=== PATIENT | male | born 1975 | race African-American/Black ===

== ENCOUNTER 2025-08-09 14:46 | Inpatient (IN) | payer MEDICAID, SELFPAY ==
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
[2025-08-09 14:55] VITALS: BP 189/139; PULSE 85; RESP 18; TEMP 36.2; O2SAT 99
[2025-08-09 15:20] VITALS: BMI 24.1
--- NOTE | 2025-08-09 17:10 | PC.NURSE ---
Pt refused flu vaccine
--- NOTE | 2025-08-09 17:41 | PC.ADMIT ---
Rik was admitted to [facility] from [facility] on a CV for treatment of unspecified depressive disorder and alcohol use disorder. Prior to admission, he reports he had gotten into an argument with his and daughter which happened often. He reports he was kicked out of the home and is newly homeless causing an increase in stress. He was having nonspecific HI towards his family and nonspecific SI. He reports he wants to get help because he hasn't been able to maintain help or providers due to his current insurance. He is alert and oriented x4, calm and cooperative with admission assessment. His thought process was clear and linear, no evidence of perceptual disturbances. His mood is depressed and his affect is variable. He was tearful at times when expressing his struggles. He denies current SI/HI/AVH but reports being able to come to staff if these thoughts occur. He reports poor appetite and difficulty staying asleep at night however has not had any weight loss. He reports daily marijuana use and daily alcohol use. He reports drinking 2.5 pints of beer daily, last drink being 08/08/25 and last marijuana use was 08/08/25. His BAL was 234 and his tox screen was positive for marijuana. He reports a history of sleep apnea without CPAP, HTN and gout. He reports many surgeries to his bilateral wrists, R clavicle and knees. He reports pain to L knee which is chronic. He was placed on 15 minute checks. His skin check was unremarkable.
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
[2025-08-09 18:38] VITALS: BP 159/114
[2025-08-09 18:54] VITALS: BP 158/118
--- OUTSIDE RECORDS SUMMARY | 2025-08-09 19:08 | XMS_ITS | Encounter Summary ---
Author Organization [facility] Address [address] [place] [address] Care Team Providers Care Log Marker Name Role Phone Saleem Martin MD Primary Care Provider [phone] Encounter Details Date Type Department Care Team (Late st Contact Info) Description 03/06/2025 Lab Requisition [facility] [address] [facility] [place] [phone] Tiffanie Garcia, [facility] [address] [place] [address] Other jail (current) drug therapy Social History Tobacco Use Types Packs/Day Years [...] AM EST documented as of this encounter Functional Status * Are you deaf or do you have serious difficulty hearing? Answer Date of Assessment Author No 12/16/2024 12:14 AM EDT Luke Miller RN * Are you blind or do [...] 12/16/2024 12:14 AM Luke Moreira RN documented as of this encounter Mental Status * Because of a physical, mental, or emotional condition, do you have serious difficulty concentrating, remembering, or making decisions? (5 years old or older) Answer Entry Date Author No 12/16/2024 12:14 AM Luke Moreira RN documented in this encounter Plan of Treatment Not on file documented as of this encounter Procedures Procedure Name Priority Date/Time Associated Diagnosis Comments LIPID PANEL WITH REFLEX TO DIRECT LDL Routine 03/06/2025 7:00 AM EDT Other jail (current) drug therapy BASIC METABOLIC PANEL Routine 03/06/2025 7:00 AM EDT Other manager long term care (current) drug therapy documented in this encounter Results * (ABNORMAL) Lipid panel with reflex to direct LDL (03/06/2025 7:00 AM EDT) Cholesterol 219(H) 0 - 200 mg/dL LAB CHEMISTRY METHOD 03/06/2025 12:13 PM EDT [facility] Triglycerides 115 0 - 150 mg/dL LAB CHEMISTRY METHOD 03/06/2025 12:13 PM T [facility] HDL 93 >=40 mg/dL LAB CHEMISTRY METHOD 03/06/2025 12:13 PM T [facility] LDL Calculated 103(H) 0 - 100 mg/dL LAB CHEMISTRY METHOD 03/06/2025 12:13 PM T [facility] VLDL Cholesterol Yefri 23 mg/dL LAB CHEMISTRY METHOD 03/06/2025 12:13 PM T [facility] Non HDL Chol. (LDL+VLDL) 126 <145 mg/dL LAB CHEMISTRY METHOD 03/06/2025 12:13 PM [facility] Chol/HDL Ratio 2.4 0.0 - 4.4 LAB CHEMISTRY METHOD 03/06/2025 12:13 PM [facility] Blood Venous blood specimen / Unknown Venipuncture / Unknown 03/06/2025 7:00 AM EDT 03/06/2025 11:07 AM EDT us Tiffanie Garcia NETWORKING TECHNICIAN LAB BLOOD ORDERABLES Final Result [facility] [address] [place] [address], [place] [phone] * (ABNORMAL) Basic metabolic panel (03/06/2025 7:00 AM EDT) Sodium 137 133 - 145 mmol/L LAB CHEMISTRY METHOD 03/06/2025 12:12 PM [facility] Potassium 3.9 3.5 - 5.5 mmol/L LAB CHEMISTRY METHOD 03/06/2025 12:12 PM [facility] Chloride 101 96 - 110 mmol/L LAB CHEMISTRY METHOD 03/06/2025 12:12 PM [facility] CO2 31 21 - 32 mmol/L LAB CHEMISTRY METHOD 03/06/2025 12:12 PM [facility] Anion Gap 5 3 - 11 LAB CHEMISTRY METHOD 03/06/2025 12:12 PM [facility] Glucose 107(H) 70 - 100 mg/dL LAB CHEMISTRY METHOD 03/06/2025 12:12 PM [facility] BUN 7 5 - 25 mg/dL LAB CHEMISTRY METHOD 03/06/2025 12:12 PM [facility] Creatinine 0.81 0.70 - 1.30 mg/dL LAB CHEMISTRY METHOD 03/06/2025 12:12 PM EDT [facility] eGFR 109 >=60 mL/min/1. 73m2 LAB CHEMISTRY METHOD 03/06/2025 12:12 PM EDT [facility] Comment:Calculation based on the Chronic Kidney Disease Epidemiology Collaboration (CKD-EPI) equation refit without adjustment for race. BUN/Creatinine Ratio 8.6 LAB CHEMISTRY METHOD 03/06/2025 12:12 PM EDT [facility] Calcium 9.4 8.5 - 10.5 mg/dL LAB CHEMISTRY METHOD 03/06/2025 12:12 PM EDT [facility] Blood Venous blood specimen / Unknown Venipuncture / Unknown 03/06/2025 7:00 AM EDT 03/06/2025 11:07 AM EDT Tiffanie Garcia NETWORKING TECHNICIAN LAB BLOOD ORDERABLES Final Result [facility] [address] [place] [address], documented in this encounter Visit Diagnoses Diagnosis Other manager long term care (current) drug therapy documented in this encounter Care Teams Log Marker Relationship Specialty Start Date End Date Saleem Martin MD [address] [place] [address] PCP - General Internal Medicine 07/29/24 documented as of this encounter
--- OUTSIDE RECORDS SUMMARY | 2025-08-09 19:09 | XMS_ITS | Clinical Summary ---
Author Organization [facility] Address [address] [place] [address] Phone Care Team Providers Care Hr Clerk Name Role Phone Saleem Martin MD Primary Care Provider [phone] Allergies Active Allergy Reactions Criticality Noted Date Comments Hydrochlorothiazide 12/06/2024 Lisinopril Swelling High 07/29/2024 Joint swelling/gout exacerbation Medications oxyCODONE (OXY-IR) 5 mg immediate release capsule Take 1 capsule (5 mg total) by mouth every 6 (six) hours if needed for severe pain. Max Daily Amount: 20 mg 28 capsule 4 Active Additional Information Patient not taking.Reported on 12/16/2024 amLODIPine (NORVASC) 5 mg tablet Take 1 tablet (5 mg total) by mouth 1 (one) time each day for 7 days, THEN 2 tablets (10 mg total) 1 (one) time each day for 23 days. 53 each 5 Active hydrocortisone (ANUSOL-HC) 2.5 % rectal cream Insert into the rectum 2 (two) times a day for 10 days. 30 g 5 Active cyanocobalamin (VITAMIN B-12) 500 mcg tablet Take 1 tablet (500 mcg total) by mouth 1 (one) time each day. 5 Active FLUoxetine (PROzac) 10 mg capsule Take 4 capsules (40 mg total) by mouth 1 (one) time each day. 5 Active hydrOXYzine HCL (ATARAX) 50 mg tablet Take 1 tablet (50 mg total) by mouth 3 (three) times a day if needed for anxiety. 5 Active One Daily Multivitamin tablet Take 1 tablet by mouth 1 (one) time each day. 5 Active thiamine 100 mg tablet Take 1 tablet (100 mg total) by mouth 1 (one) time each day. 5 Active traZODone (DESYREL) 100 mg tablet Take 1 tablet (100 mg total) by mouth at bedtime. 5 Active prazosin (MINIPRESS) 2 mg capsule Take 1 capsule (2 mg total) by mouth at bedtime. at bedtime 5 Active amLODIPine (NORVASC) 10 mg tablet Take 1 tablet (10 mg total) by mouth 1 (one) time each day. for 14 days Active allopurinoL (ZYLOPRIM) 100 mg tablet Take 1 tablet (100 mg total) by mouth 1 (one) time each day. 5 Active folic acid (FOLVITE) 1 mg tablet Take 1 tablet (1,000 mcg total) by mouth 1 (one) time each day. Active losartan (COZAAR) 50 mg tablet Take 1 tablet (50 mg total) by mouth 2 (two) times a day. Active melatonin 3 mg tablet Take 1 tablet (3 mg total) by mouth at bedtime as needed. for insomnia 5 Active OLANZapine (ZyPREXA) 5 mg tablet Take 1 tablet (5 mg total) by mouth at bedtime. Active Active Problems Problem Noted Date Diagnosed Date Strangulated hemorrhoids 12/07/2024 HTN (hypertension) 07/30/2024 Closed Bledsoe's fracture of right radius 024 Encounters Date Type Department Care Team Description 08/08/2025 6:06 PM EST - 08/09/2025 2:26 PM EST Emergency [facility] Emergency [address] [place] [address] Junaid Haro MD Goebel, Mathew, MD Mogul, Ashley, MD Depression, unspecified depression type (Primary Dx); Agitation; Alcoholic intoxication without complication (CMS/[facility] V24); Alcohol dependence with unspecified alcohol-induced disorder (CMS/HCC V24, [facility] V28) [facility]charge Disposition: [facility] Last 3 Months Immunizations Immunization Administration Dates Next Due Moderna SARS-CoV-2 COVID-19, mRNA, LNP-S, preservative free 01/18/2022,12/28/2021 Surgical History Surgery Date Site/Laterality Comments OTHER SURGICAL HISTORY ANTERIOR CRUCIATE LIGAMENT REPAIR ACHILLES TENDON SURGERY Medical History Medical History Date Comments Hypertension Insomnia Anxiety Social History Tobacco Use Types Packs/Day Years Used Date Smoking Tobacco: Some Days Cigarettes 0 Last attempted to quit: 2013 Smokeless Tobacco: Never Tobacco Cessation:Ready to Q uit: Not Asked; Counseling Given: Not Answered Alcohol Use Standard Drinks/Week Comments Yes 7 [...] Orientation Straight 07/30/2024 8: 19 AM EST Last Filed Vital Signs Vital Sign Reading [...] Mass Index 26.63 08/08/2025 6:47 PM EST Plan of Treatment Health Maintenance Due Date Last Done Comments Colorectal Cancer Screening: Colonoscopy 1976 Hepatitis A Vaccines (1 of 2 - Risk 2-dose series) 1995 Hepatitis B Vaccines (1 of 3 - 19+ 3-dose series) 1995 Pneumococcal Vaccine: Pediatrics (0 to 5 Years) and At-Risk Patients (6 to 49 Years) (1 of 2 - PCV) 1995 HIV Screening 06/03/2024 Hepatitis C Screening 06/03/2024 Social Influencers of Health Screening 06/03/2024 Depression Screening 08/25/2024 COVID-19 Vaccine ( season) 2025 01/18/2022, 12/28/2021 Influenza Vaccine (#1) 2025 Hypertension/CHF/CAD Annual BMP Blood Test 08/08/2026 08/08/2025, 03/06/2025, 12/16/2024, Additional history exists DTaP,Tdap,and Td Vaccines (2 - Td or Tdap) 06/17/2028 06/17/2018 Cholesterol Screening (Lipid Panel) 03/06/2030 03/06/2025 RSV Immunization Adult Patients (1 - 1-dose 75+ series) 2051 HIB Vaccines Aged Out No longer eligi ble based on patient's age to complete this topic HPV Vaccines Aged Out No longer eligi ble based on patient's age to complete this topic IPV Vaccines Aged Out No longer eligi ble based on patient's age to complete this topic MMR Vaccines Aged Out No longer eligi ble based on patient's age to complete this topic Meningococcal ACWY Vaccine Aged Out N o longer eligible based on patient's age to complete this topic Meningococcal B Vaccine Aged Out No l onger eligible based on patient's age to complete this topic RSV Immunization Patients Under 20 months Aged Out No longer eligible based on patient's age to complete this topic Varicella Vaccines Aged Out No longer eligible based on patient's age to complete this topic Medical Devices Implanted Type Area Fraud Manager Device Identifier Shelf Expiration Date Model / Serial / Lot Plate Hook Screw Geminus - Sn/A - [id number] Implanted:Qty: 1 on 07/30/2024 by Derek Parekh MD at [facility] Internal and External Fixation Right: Wrist [employer] [facility] GMN-HP-SC RW / N/A / N/A Plate Geminus Std 4 Hole R - Sn/A - [id number] Implanted:Qty: 1 on 07/30/2024 by Derek Parekh MD at [facility] Internal and External Fixation Right: Wrist [employer] [facility] GMN-RTS-4 HL / N/A / N/A Plate Hook Geminus - Sn/A - [id number] Implanted:Qty: 1 on 07/30/2024 by Derek Parekh MD at [facility] Internal and External Fixation Right: Wrist [employer] GMN-HP / N/A / N/A Joints Knee Joints Knee Left: Knee Peg Thrd Lcking 2.0ndw38ml - Sn/A - [id number] Implanted:Qty: 2 on 07/30/2024 by Derek Parekh MD at [facility] Joints Right: Wrist [employer] TPLS-2316 0-TS / N/A / N/A Peg Thrd Lcking 2.0erm73sg - Sn/A - [id number] Implanted:Qty: 3 on 07/30/2024 by Derek Parekh MD at [facility] Joints Right: Wrist [employer] TPLS-2320 0-TS / N/A / N/A Screw Tigre Nonlcking 3.5x14mm - Sn /A - [id number] Implanted:Qty: 2 on 07/30/2024 by Derek Parekh MD at [facility] Joints Right: Wrist [employer] PANL-3514 0-TS / N /A / N/A Peg Thrd Lcking 2.7sku51rx - Sn/A - [id number] Implanted:Qty: 1 on 07/30/2024 by Derek Parekh MD at [facility] Joints Right: Wrist [employer] [id number]-2318 0-TS / N/A / N/A Peg Thrd Lcking 2.0fuq55df - Sn/A - [id number] Implanted:Qty: 1 on 07/30/2024 by Derek Parekh MD at [facility] Joints Right: Wrist [employer] TPLS-2322 0-TS / N/A / N/A Screw Tigre Lcking 3.2sen74ct - Sn/A - [id number] Implanted:Qty: 1 on 07/30/2024 by Derek Parekh MD at [facility] Joints Right: Wrist [employer] [id number]-[id number] 0-TS / N/A / N/A Screw Tigre Nonlcking 3.5x13mm - Sn/A - [id number] Implanted:Qty: 1 on 07/30/2024 by Derek Parekh MD at [facility] Joints Right: Wrist [employer] [id number]-[id number] 0-TS / N/A / N/A Procedures Procedure Name Priority Date/Time Associated Diagnosis Comments ECG 12-LEAD STAT 08/08/2025 6:57 PM EST CBC WITH AUTO DIFFERENTIAL STAT 08/08/2025 6:32 PM EST ACETAMINOPHEN LEVEL Timed 08/08/2025 6 :32 PM EST SALICYLATE LEVEL Timed 08/08/2025 6:3 2 PM EST ETHANOL STAT 08/08/2025 6:32 PM EST CBC AND DIFFERENTIAL STAT 08/08/2025 6:32 PM EST COMPREHENSIVE METABOLIC PANEL STAT 08/08/2025 6:32 PM EST BUPRENORPHINE SCREEN, URINE STAT 08/08/2025 6:29 PM EST METHADONE SCREEN, URINE STAT 08/08/2025 6:29 PM EST LIPID PANEL WITH REFLEX TO DIRECT LDL Routine 03/06/2025 7:00 AM EDT Other chcf (current) drug therapy from Last 3 Months or Most Recently Relevant to Health Maintenance Results * ECG 12 lead (08/08/2025 6:57 PM EST) Ventricular Rate ECG 77 BPM GEMUSE Atrial Rate 77 BPM GEMUSE P-R Interval 158 ms GEMUSE QRS Duration 82 ms GEMUSE Q-T Interval 422 ms GEMUSE QTc 477 ms GEMUSE P Wave [place] 77 degrees GEMUSE R [place] 61 degrees GEMUSE T [place] 62 degrees GEMUSE ECG Interpretation Normal sinus [...] K/mcL LAB HEMETOLOGY METHOD 08/08/2025 7:09 PM [facility] RBC 4.50 4.50 - 5.50 M/mcL LAB HEMETOLOGY METHOD 08/08/2025 7:09 PM [facility] Hemoglobin 13.9 13.5 - 17.5 g/dL LAB HEMETOLOGY METHOD 08/08/2025 7:09 PM [facility] Hematocrit 39.1(L) 42.0 - 54.0 % LAB HEMETOLOGY METHOD 08/08/2025 7:09 PM [facility] MCV 87.5 79.0 - 98.0 FL LAB HEMETOLOGY METHOD 08/08/2025 7:09 PM [facility] MCH 31.1 27.0 - 32.0 pcg LAB HEMETOLOGY METHOD 08/08/2025 7:09 PM [facility] MCHC 35.5 32.0 - 37.0 g/dL LAB HEMETOLOGY METHOD 08/08/2025 7:09 PM [facility] RDW 11.9 11.0 - 15.0 % LAB HEMETOLOGY METHOD 08/08/2025 7:09 PM [facility] Platelets 266 130 - 400 K/mcL LAB HEMETOLOGY METHOD 08/08/2025 7:09 PM [facility] MPV 10.4 7.0 - 11.0 FL LAB HEMETOLOGY METHOD 08/08/2025 7:09 PM [facility] NRBC 0.0 <1.0 % LAB HEMETOLOGY METHOD 08/08/2025 7:09 PM [facility] NRBC Absolute 0.00 <0.10 K/mcL LAB HEMETOLOGY METHOD 08/08/2025 7:09 PM [facility] Neutrophils Relative 68.3 % LAB HEMETOLOGY METHOD 08/08/2025 7:09 PM [facility] Lymphocytes Relative 25.3 % LAB HEMETOLOGY METHOD 08/08/2025 7:09 PM [facility] Monocytes Relative 5.6 % LAB HEMETOLOGY METHOD 08/08/2025 7:09 PM [facility] Eosinophils Relative 0.1 % LAB HEMETOLOGY METHOD 08/08/2025 7:09 PM [facility] Basophils Relative 0.4 % LAB HEMETOLOGY METHOD 08/08/2025 7:09 PM [facility] Immature Granulocytes Relative 0.3 % LAB HEMETOLOGY METHOD 08/08/2025 7:09 PM [facility] Neutrophils Absolute 6.37 1.50 - 7.00 K/mcL LAB HEMETOLOGY METHOD 08/08/2025 7:09 PM [facility] Lymphocytes Absolute 2.36 1.00 - 5.00 K/mcL LAB HEMETOLOGY METHOD 08/08/2025 7:09 PM [facility] Monocytes Absolute 0.52 0.20 - 1.00 K/mcL LAB HEMETOLOGY METHOD 08/08/2025 7:09 PM [facility] Eosinophils Absolute 0.01 0.00 - 0.50 K/mcL LAB HEMETOLOGY METHOD 08/08/2025 7:09 PM [facility] Basophils Absolute 0.04 0.00 - 0.20 K/[facility] LAB HEMETOLOGY METHOD 08/08/2025 7:09 PM EST [facility] Immature Granulocytes Absolute 0.03 0.00 - 0.03 [facility] LAB HEMETOLOGY METHOD 08/08/2025 7:09 PM EST [facility] Blood Venous blood specimen / Unknown Venipuncture / Unknown 08/08/2025 6:32 PM EST 08/08/2025 7:02 PM EST Junaid Haro MD LAB BLOOD ORDERABLES Final Result Performing Organization Address City/[facility]/ZIP Co de Phone Number [facility] [address] [place] [address], [place] [phone] * (ABNORMAL) Ethanol (08/08/2025 6:32 PM EST) Ethanol Level 243(H) 0 - 10 mg/dL 08/08/2025 7:36 PM EST [facility] Blood Venous blood specimen / Unknown Venipuncture / Unknown 08/08/2025 6:32 PM EST 08/08/2025 7:02 PM EST Junaid Haro MD LAB BLOOD ORDERABLES Final Result Performing Organization Address City/[facility]/ZIP Co de Phone Number [facility] [address] [place] [address], [place] [phone] * (ABNORMAL) Acetaminophen level (08/08/2025 6:32 PM EST) Acetaminophen Level <2.0(L) 10.0 - 30.0 mcg/mL 08/08/2025 7:36 PM EST [facility] Blood Venous blood specimen / Unknown Venipuncture / Unknown 08/08/2025 6:32 PM EST 08/08/2025 7:02 PM EST Junaid Haro MD LAB BLOOD ORDERABLES Final Result Performing Organization Address City/[facility]/ZIP Co de Phone Number [facility] [address] [place] [address], [place] [phone] * Salicylate level (08/08/2025 6:32 PM EST) Salicylate Level <3.0 2.0 - 29.0 mg/dL 08/08/2025 7:46 PM [facility] Blood Venous blood specimen / Unknown Venipuncture / Unknown 08/08/2025 6:32 PM EST 08/08/2025 7:02 PM EST Junaid Haro MD LAB BLOOD ORDERABLES Final Result Performing Organization Address [facility]/ZIP Co de Phone Number [facility] [address] [place] [address], [place] [phone] * (ABNORMAL) Comprehensive metabolic panel (08/08/2025 6:32 PM EST) Sodium 140 133 - 145 mmol/L 08/08/2025 7:46 PM [facility] Potassium 3.8 3.5 - 5.5 mmol/L 08/08/2025 7:46 PM [facility] Chloride 103 96 - 110 mmol/L 08/08/2025 7:46 PM [facility] CO2 28 21 - 32 mmol/L 08/08/2025 7:46 PM [facility] Anion Gap 9 3 - 11 08/08/2025 7:46 PM [facility] Glucose 66(L) 70 - 100 mg/dL 08/08/2025 7:46 PM [facility] BUN <5(L) 5 - 25 mg/dL 08/08/2025 7:46 PM [facility] Creatinine 0.96 0.70 - 1.30 mg/dL 08/08/2025 7:46 PM [facility] eGFR 97 >=60 mL/min/1. 73m2 08/08/2025 7:46 PM [facility] Comment:Calculation based on the Chronic Kidney Disease Epidemiology Collaboration (CKD-EPI) equation refit without adjustment for race. Calcium 9.2 8.5 - 10.5 mg/dL 08/08/2025 7:46 PM [facility] AST (SGOT) 30 10 - 42 unit/L 08/08/2025 7:46 PM [facility] ALT (SGPT) 26 10 - 60 unit/L 08/08/2025 7:46 PM [facility] Alkaline Phosphatase 52 42 - 121 unit/L 08/08/2025 7:46 PM [facility] Total Protein 7.1 6.0 - 8.0 g/dL 08/08/2025 7:46 PM [facility] Albumin 4.5 3.2 - 5.0 g/dL 08/08/2025 7:46 PM [facility] Total Bilirubin 0.5 0.0 - 1.4 mg/dL 08/08/2025 7:46 PM [facility] Blood Venous blood specimen / Unknown Venipuncture / Unknown 08/08/2025 6:32 PM EST 08/08/2025 7:02 PM EST us Junaid Haro MD LAB BLOOD ORDERABLES Final Result [facility] [address] [place] [address], * Buprenorphine screen, urine (08/08/2025 6:29 PM EST) Buprenorphine Screen Urine Negative Negative 08/08/2025 7:35 PM EST [facility] Urine Urine specimen obtained by clean catch procedure / Unknown Non-blood Collection / Unknown 08/08/2025 6:29 PM EST 08/08/2025 7:00 PM EST Narrative [facility] - 08/08/2025 7:35 PM EST Assay cutoff 5 ng/mL Semi-quantitative assay for screening purposes only. Unconfirmed screening result should not be used for non-medical purposes. *ALTERNATE METHOD CONFIRMATION DONE UPON REQUEST ONLY* Junaid Haro MD LAB URINE ORDERABLES Final Result Performing Organization Address [facility]/ZIP Co de Phone Number [facility] [address] [place] [address], [place] [phone] * Methadone, urine (08/08/2025 6:29 PM EST) Methadone Screen, Urine Negative Negative 08/08/2025 7:35 PM EST [facility] Comment: Assay cutoff 300 [...] URINE ORDERABLES Final Result Performing Organization Address City/[facility]/ZIP Co de Phone Number [facility] [address] [place] [address], [place] [phone] * (ABNORMAL) Lipid panel with reflex to direct LDL (03/06/2025 7:00 AM EDT) Cholesterol 219(H) 0 - 200 mg/dL LAB CHEMISTRY METHOD 03/06/2025 12:13 PM EDT [facility] Triglycerides 115 0 - 150 mg/dL LAB CHEMISTRY METHOD 03/06/2025 12:13 PM EDT [facility] HDL 93 >=40 mg/dL LAB CHEMISTRY METHOD 03/06/2025 12:13 PM EDT [facility] LDL Calculated 103(H) 0 - 100 mg/dL LAB CHEMISTRY METHOD 03/06/2025 12:13 PM EDT [facility] VLDL Cholesterol Yefri 23 mg/dL LAB CHEMISTRY METHOD 03/06/2025 12:13 PM EDT [facility] Non HDL Chol. (LDL+VLDL) 126 <145 mg/dL LAB CHEMISTRY METHOD 03/06/2025 12:13 PM EDT [facility] Chol/HDL Ratio 2.4 0.0 - 4.4 LAB CHEMISTRY METHOD 03/06/2025 12:13 PM EDT [facility] Blood Venous blood specimen / Unknown Venipuncture / Unknown 03/06/2025 7:00 AM EDT 03/06/2025 11:07 AM EDT us Tiffanie Garcia POLYSOMNOGRAPH TECH LAB BLOOD ORDERABLES Final Result [facility] [address] [place] [address], from Last 3 Months or Most Recently Relevant to Health Maintenance Insurance MEDICAID - [place] Advance Directives * Full Code - Default (Latest Code Status on File) Date Activated Date Inactivated Comments 07/30/2024 9:33 AM 07/30/2024 4:39 PM This is orde r is used when code status has not been discussed with the patient, or code status is otherwise unknown/unconfirmed To update the patient's code status, place a code status order. Do not modify or discontinue any currently active code status orders. Care Teams Hr Clerk Relationship Specialty Start Date End Date Saleem Martin MD [address] [place] [id number] PCP - General Internal Medicine 07/29/24
--- OUTSIDE RECORDS SUMMARY | 2025-08-09 19:09 | XMS_ITS | Encounter Summary ---
Author Organization [facility] Address [address] [place] [address] Care Team Providers Care Inclusion Special Education Teacher Name Role Phone Saleem Martin MD Primary Care Provider [phone] Encounter Details Date Type Department Care Team (Late st Contact Info) Description 03/06/2025 Lab Requisition [facility] - Main Lab [address] [facility] [place] [id number] Tiffanie Garcia, [facility] [address] [place] [address] Social History Tobacco Use Types Packs/Day Years [...] on file documented as of this encounter Visit Diagnoses Not on filedocumented in this encounter Care Teams Inclusion Special Education Teacher Relationship Specialty Start Date End Date Saleem Martin MD [address] [place] [address] PCP - General Internal Medicine 07/29/24 documented as of this encounter
[2025-08-09 20:00] VITALS: BP 148/114; PULSE 81; RESP 16; TEMP 36.5; O2SAT 99
[2025-08-09 21:29] VITALS: BP 138/108; PULSE 78; RESP 17; O2SAT 99
[2025-08-10] VITALS (9 sets, daily range): BP systolic 115–166; BP diastolic 88–112; PULSE 77–93; RESP 15–20; TEMP 36.6–37.1; O2SAT 98–100
[2025-08-10 08:28] LABS: Cholesterol 203 mg/dL (<200); HDL Cholesterol 62 mg/dL (>40); Triglycerides 129 mg/dL (<150)
--- NOTE | 2025-08-10 08:53 | HO.PM.IMCN ---
History of Present Illness Data of Consult Service Date: 08/10/25 Primary Care Provider: Unknown Physician HPI Reason for consult: Medical consult 50-year-old male with a past medical history of depression, anxiety, hypertension, insomnia, presented to the emergency room with alcohol intoxication and nonspecific threats towards his family. Presentation complicated by homelessness. Patient is comprehensive metabolic panel without any evidence of renal or liver impairment, no electrolyte imbalances. ETOH level 243 on admit. No leukocytosis or no anemia. EKG with normal sinus rhythm. Except for occasional mild left knee pain. Patient reports that he had ACL repair 1 year ago and still has occasional arthritic pains. He otherwise feels well, denies any shortness of breath, dizziness, lightheadedness, headaches, chest pain, abdominal pain, nausea vomiting or diarrhea. Review of Systems Review of Systems: Patient has no acute medical complaints at this time All other systems are reviewed and are negative PMFSH Social History Household Members: None Housing: Homeless Patient Tobacco Use Status: Never used Tobacco Currently Displaying Signs/Symptoms of Drug Intoxication Withdrawal: No Have you been hit, kicked, punched, or otherwise hurt by someone within the past year? If so, by whom?: No Do you feel safe in your current relationship?: Yes Is there a partner from a previous relationship who is making you feel unsafe now?: No Are you made to feel afraid or neglected: No Advance Directives: No Advance Directives Information Provided: Yes Do you have thoughts of harming others: None Do you have a plan to hurt others: No Plan Recently lost weight without trying: No How much weight loss: Not applicable Eating poorly because of decreased appetite: No Nutrition screen score: 0 Nutrition Risks: No Nutritional Risk Poor oral hygiene: No service: No Sexual orientation: Straight/Heterosexual Meds Allergies Allergy/AdvReac Type Severity Reaction Status Date / Time lisinopril Allergy Abdominal Verified 08/09/25 15:20 Pain Active Medications: Current Medications Acetaminophen (Acetaminophen 325 Mg Tablet) 650 mg PO Q6H PRN PRN Reason: Headache/Pain, Scale 1-10 Last Admin: 08/10/25 08:01 Dose: 650 mg Al Hydroxide/Mg Hydroxide (Magnesium Hydrox/Alum Hydrox 30 Ml Oral.Susp) 30 ml PO Q6H PRN PRN Reason: Heartburn/Nausea Allopurinol (Allopurinol 100 Mg Tablet) 100 mg PO DAILY [facility] Last Admin: 08/10/25 08:00 Dose: 100 mg Clonidine HCl (Clonidine Hcl 0.1 Mg Tablet) 0.1 mg PO TID PRN; Protocol PRN Reason: High BP & anxiety Last Admin: 08/10/25 07:59 Dose: 0.1 mg Fluoxetine HCl (Fluoxetine Hcl 20 Mg Capsule) 20 mg PO DAILY [facility] Last Admin: 08/10/25 08:00 Dose: 20 mg Hydroxyzine HCl (Hydroxyzine Hcl 25 Mg Tablet) 25 mg PO Q6H PRN PRN Reason: mild anxiety Lorazepam (Lorazepam 1 Mg Tablet) 1 mg PO Q2H PRN PRN Reason: CIWA 8-11 Last Admin: 08/10/25 07:59 Dose: 1 mg Lorazepam (Lorazepam 1 Mg Tablet) 2 mg PO Q2H PRN PRN Reason: CIWA 12-15 Losartan Potassium (Losartan Potassium 50 Mg Tablet) 50 mg PO BID [facility]; Protocol Last Admin: 08/10/25 07:58 Dose: 50 mg Magnesium Hydroxide (Milk Of Magnesia 30 Ml Oral.Susp) 30 ml PO DAILY PRN PRN Reason: Constipation Melatonin (Melatonin 3 Mg Tablet) 6 mg PO BEDTIME PRN PRN Reason: Insomnia Last Admin: 08/10/25 00:38 Dose: 6 mg Nicotine (Nicotine 21 Mg Patch.Td24) 21 mg TRANSDERMA DAILY PRN PRN Reason: nicotine craving Nicotine Polacrilex (Nicotine Polacrilex 2 Mg Gum) 4 mg BUCCAL Q2H PRN PRN Reason: Nicotine Cravings Olanzapine (Olanzapine 2.5 Mg Tablet) 2.5 mg PO BEDTIME [facility] Last Admin: 08/09/25 21:40 Dose: 2.5 mg Prazosin HCl (Prazosin Hcl 1 Mg Capsule) 2 mg PO BEDTIME [facility]; Protocol Last Admin: 08/09/25 21:38 Dose: 2 mg Risperidone (Risperidone 0.5 Mg Tablet) 0.5 mg PO BEDTIME [facility] Last Admin: 08/09/25 21:39 Dose: 0.5 mg Risperidone (Risperidone 0.5 Mg Tablet) 0.5 mg PO TID PRN PRN Reason: agitation Thiamine HCl (Thiamine Hcl 100 Mg Tablet) 100 mg PO DAILY [facility] Last Admin: 08/10/25 08:19 Dose: Not Given Trazodone HCl (Trazodone Hcl 50 Mg Tablet) 50 mg PO BEDTIME [facility] Last Admin: 08/09/25 21:40 Dose: 50 mg Home Medications ?Medication ?Instructions ?Recorded ?Confirmed ?Last Taken ?Type allopurinol 100 mg tablet 100 mg PO DAILY 08/09/25 08/09/25 08/08/25 08:00 History fluoxetine 40 mg capsule 40 mg PO DAILY depressive disorder 08/09/25 08/09/25 08/08/25 08:00 History losartan 50 mg tablet 50 mg PO BID blood pressure 08/09/25 08/09/25 08/08/25 08:00 History melatonin 3 mg tablet 3 mg PO BEDTIME PRN insomnia 08/09/25 08/09/25 08/07/25 21:00 History naltrexone microspheres 380 mg 380 mg IM Q4W 08/09/25 08/09/25 Unknown History intramuscular suspension,extended release (Vivitrol) olanzapine 5 mg tablet 5 mg PO BEDTIME depressive disorder 08/09/25 08/09/25 08/07/25 21:00 History prazosin 2 mg capsule 2 mg PO BEDTIME 08/09/25 08/09/25 08/07/25 21:00 History thiamine HCl (vitamin B1) 100 mg 100 mg PO DAILY 08/09/25 08/09/25 08/08/25 08:00 History tablet trazodone 100 mg tablet 100 mg PO BEDTIME insomnia 08/09/25 08/09/25 08/07/25 21:00 History Physical Exam Vital Signs and Narrative: Vital Signs: Last Vital Signs Temp 98.6 F 08/10/25 07:58 Pulse 93 08/10/25 07:58 Resp 20 08/10/25 07:58 BP 166/112 H 08/10/25 07:58 Pulse Ox 99 08/10/25 07:58 O2 Del Method Room Air 08/10/25 07:58 BMI result Body Mass Index 24.1 Alert and oriented X3, calm and cooperative. Answers questions. Neuro: CN II-X11 intact, no deficits, visual acuity intact EYES: PERRLA, EOM intact ENT: Hearing intact, MMM Cardiac: S1 S2 RRR, No ectopy Pulmonary: lungs clear to auscultation, No increased WOB. Abdominal: BS active in all 4 quadrants, no guarding or tenderness MSK: Strength 5/5 upper and lower extremities : Deferred Extremities: No edema in lower extremities Psych: Pleasant, Quiet and cooperative. Skin: Warm and dry, Intact Results Labs Labs: Laboratory Results - last 24 hr 08/10/25 07:32 Estimat Average Glucose 85 Hemoglobin A1c % 4.6 Triglycerides 129 Cholesterol 203 H LDL Cholesterol, Calc 116 H HDL Cholesterol 62 Assessment and Plan (1) HTN (hypertension): Status: Acute Plan 50-year-old male history of anxiety, insomnia, alcohol use disorder, hypertension, depressive disorder presented to the ED with HI towards his family. Presentation complicated by homelessness. Admitted to inpatient psych for stabilization. Anxiety/depressive disorder/EtOH use disorder/insomnia Treatment per psychiatric team Hypertension Continue losartan 50 mg b.i.d. Add amlodipine 2.5 mg at HS Continue to monitor blood pressures Left knee pain Lidocaine gel TID prn Tylenol as needed Thank you for allowing me to participate in the care of this patient. Will follow with you, please notify medical provider with any changes in condition or concerns.
--- NOTE | 2025-08-10 09:21 | HO.PSYCHPN ---
Subjective Subjective Date of Service: 08/10/25 Reason For Visit: Unspecified Depressive Disorder Subjective Notes: Conditional Voluntary Interim History: Chart reviewed. Case discussed w/ team PRNs as of 14:00 today Received 1 mg lorazepam yesterday, 2 mg so far today per CIWA. clonidine 0.2 mg yesterday, 0.1 mg for HTN-- improving Pt denies sx of ETOH w/d. He attributes his HTN and previous shaking/sweating to anxiety about his situation and coming to the hospital. He feels better today. He denies SI/violent ideation. He is more accepting of the situation w/ his family and housing, which reduces his stress, compared to trying to fight it. He hasn't spoken w/ anyone in his family since he's been here but might call his dad to see if he can provide any support. He accepts that he may have to go to a detention. SW will refer him to [facility]. Med adherent. Denies any issues w/ the addition of risperidone. He had been taking olanzapine 5 mg at home and t/w lowered the dose to 2.5 mg to x titrate to risperidone (.5 mg last night). He agrees w/ plan to d/c olanzapine and titrate risperidone to 1 mg tonight. Slept okay, aside from being woken up for CIWA monitoring last night. Medication Compliance: Yes Side effects from medications: No Attending Groups: Intermittent Mental Status Exam Mental Status Exam Narrative: Appearance: Pt was lying in bed sound asleep w/ headphones on. Didn't wake up to SW yelling his name but easily rousable to being gently tapped on the shoulder. Grooming/hygiene wnl. Good eye contact. Attitude:Cooperative Speech: Fluent and wnl in regard to volume, tone, prosody Motor activity: Calm and without any tics, tremors or dyskinesias. Steady gait Mood: better Affect: appropriate, reactive Thought process: Goal directed, no evidence of formal thought disorder Thought content: Denies SI/violent ideation. Future oriented Perception: Denies AH/VH and does not appear to respond to internal stimuli Alert/oriented in all spheres Cognition grossly intact Insight: intact Judgment: intact Diagnostics Vital Signs (24Hr): Vital Signs - 24 hr 08/09/25 14:55 08/09/25 18:38 08/09/25 18:54 Temperature 97.2 F Pulse Rate 85 Respiratory Rate 18 Blood Pressure 189/139 H 159/114 H 158/118 H Pulse Oximetry 99 Oxygen Delivery Method Room Air 08/09/25 20:00 08/09/25 21:29 08/10/25 00:32 Temperature 97.7 F Pulse Rate 81 78 77 Respiratory Rate 16 17 16 Blood Pressure 148/114 H 138/108 H 122/90 H Pulse Oximetry 99 99 100 Oxygen Delivery Method Room Air Room Air Room Air 08/10/25 04:16 08/10/25 07:58 Temperature 97.8 F 98.6 F Pulse Rate 82 93 Respiratory Rate 15 20 Blood Pressure 115/99 H 166/112 H Pulse Oximetry 99 99 Oxygen Delivery Method Room Air BMI result Body Mass Index 24.1 Labs Labs: Laboratory Results - last 48 hr 08/10/25 07:32 Estimat Average Glucose 85 Hemoglobin A1c % 4.6 Triglycerides 129 Cholesterol 203 H LDL Cholesterol, Calc 116 H HDL Cholesterol 62 Medications Medications Current Medications Acetaminophen (Acetaminophen 325 Mg Tablet) 650 mg PO Q6H PRN PRN Reason: Headache/Pain, Scale 1-10 Last Admin: 08/10/25 08:01 Dose: 650 mg Al Hydroxide/Mg Hydroxide (Magnesium Hydrox/Alum Hydrox 30 Ml Oral.Susp) 30 ml PO Q6H PRN PRN Reason: Heartburn/Nausea Allopurinol (Allopurinol 100 Mg Tablet) 100 mg PO DAILY [facility] Last Admin: 08/10/25 08:00 Dose: 100 mg Clonidine HCl (Clonidine Hcl 0.1 Mg Tablet) 0.1 mg PO TID PRN; Protocol PRN Reason: High BP & anxiety Last Admin: 08/10/25 07:59 Dose: 0.1 mg Fluoxetine HCl (Fluoxetine Hcl 20 Mg Capsule) 20 mg PO DAILY [facility] Last Admin: 08/10/25 08:00 Dose: 20 mg Hydroxyzine HCl (Hydroxyzine Hcl 25 Mg Tablet) 25 mg PO Q6H PRN PRN Reason: mild anxiety Lorazepam (Lorazepam 1 Mg Tablet) 1 mg PO Q2H PRN PRN Reason: CIWA 8-11 Last Admin: 08/10/25 07:59 Dose: 1 mg Lorazepam (Lorazepam 1 Mg Tablet) 2 mg PO Q2H PRN PRN Reason: CIWA 12-15 Losartan Potassium (Losartan Potassium 50 Mg Tablet) 50 mg PO BID [facility]; Protocol Last Admin: 08/10/25 07:58 Dose: 50 mg Magnesium Hydroxide (Milk Of Magnesia 30 Ml Oral.Susp) 30 ml PO DAILY PRN PRN Reason: Constipation Melatonin (Melatonin 3 Mg Tablet) 6 mg PO BEDTIME PRN PRN Reason: Insomnia Last Admin: 08/10/25 00:38 Dose: 6 mg Nicotine (Nicotine 21 Mg Patch.Td24) 21 mg TRANSDERMA DAILY PRN PRN Reason: nicotine craving Nicotine Polacrilex (Nicotine Polacrilex 2 Mg Gum) 4 mg BUCCAL Q2H PRN PRN Reason: Nicotine Cravings Olanzapine (Olanzapine 2.5 Mg Tablet) 2.5 mg PO BEDTIME [facility] Last Admin: 08/09/25 21:40 Dose: 2.5 mg Prazosin HCl (Prazosin Hcl 1 Mg Capsule) 2 mg PO BEDTIME [facility]; Protocol Last Admin: 08/09/25 21:38 Dose: 2 mg Risperidone (Risperidone 0.5 Mg Tablet) 0.5 mg PO BEDTIME [facility] Last Admin: 08/09/25 21:39 Dose: 0.5 mg Risperidone (Risperidone 0.5 Mg Tablet) 0.5 mg PO TID PRN PRN Reason: agitation Thiamine HCl (Thiamine Hcl 100 Mg Tablet) 100 mg PO DAILY [facility] Last Admin: 08/10/25 08:19 Dose: Not Given Trazodone HCl (Trazodone Hcl 50 Mg Tablet) 50 mg PO BEDTIME [facility] Last Admin: 08/09/25 21:40 Dose: 50 mg Allergies Allergies Allergy/AdvReac Type Severity Reaction Status Date / Time lisinopril Allergy Abdominal Verified 08/09/25 15:20 Pain Assessment & Plan Assessment & Plan (1) Depressive disorder: Status: Acute Code(s): F32.A - Depression, unspecified (2) Alcohol use disorder: Status: Acute Code(s): F10.90 - Alcohol use, unspecified, uncomplicated (3) Cocaine use disorder in remission: Status: Acute Code(s): F14.91 - Cocaine use, unspecified, in remission Plan Mr. Deng is a 50 yo black M with h/o anxiety, insomnia, alcohol use d/o, cocaine use d/o in remission, and HTN who presented to [facility] to requesting to speak w/ Crisis after having an anxiety attack. He reportedly endorsed SI at the [facility] and HI towards his family in general after being kicked out and having no place to go. BAL on arrival to the ED was 243. Pt was transferred to [facility] for safety and stabilization after undergoing medical clearance. Plan: Admitted to [facility] for safety and stabilization 15 min safety checks Continue current home meds psych meds include fluoxetine 40 mg- has helped with anxiety overall, prazosin 2 mg-helps w/ insomnia, trazodone 100 mg qhs- helps with insomnia but a/w vivid dreams Pt is agreeable w/ plan to trial risperidone off-label for anxiety/impulsivity/anger. Will start with .5 mg tonight and add 0.5 mg bid prn CIWA + prn lorazepam for sx of ETOH w/d 08/10: Med correction - pt was started on fluoxetine 20 mg since he hadn't been taking fluoxetine consistently. He had been taking olanzapine 5 mg qhs at home and dose was decreased to 2.5 mg to x titrate to risperidone (0.5 mg last night). He has received 2 mg lorazeapam per CIWA today, currently denies sx of ETOH w/d. Received clonidine .1 mg for HTN today in addition to losartan 50 mg bid. Still hypertensive but improving. Mood has improved denies SI/violent ideation. -Communicated w/ hospitalist re: tx of HTN. She was in the process of meeting w/ pt and will adjust meds as needed. -Pt agreeable w/ plan to d/c olanzapine and increase risperidone to 1 mg starting tonight for off-label tx of mood lability/anxiety. Patient educated on: diagnosis, medication risk/benefits, substance abuse and therapeutic strategies Informed Consent: understands Reason for continued inpatient stay Substantial Risk for: med/psych decompensation Time Spent With Patient Time: Total time managing care of this patient today ____ minutes.
[2025-08-11 07:00] VITALS: BMI 25.0
[2025-08-11 08:04] VITALS: BP 131/93; PULSE 85; RESP 16; TEMP 36.8; O2SAT 100
[2025-08-11 12:28] VITALS: BP 149/100; BP 160/107; PULSE 78
--- NOTE | 2025-08-11 12:31 | MHC.RECOVRN ---
Consult placed for pt with positive AUDIT-C Pt reports consuming one 22oz beer daily. He also states he will occasionally drink ? pint of cognac, when finances permit, which he states has not been for quite some time. H&P reflects pt has Hx of cocaine use, however pt denies use ?for years?. Pt reports numerous [facility] admissions related to ongoing stress and mental health and a recent [facility] admission which he reports was extremely helpful. ?It made me realize my drinking and substance use has contributed to some of my problems. I don?t drink that way anymore?. Pt reports Vivitrol has been helpful in the past but states he stopped taking it ?around May? due to loss of insurance. Pt denies the need to completely abstain from alcohol and is satisfied with his recent decrease in consumption.? Pt states his SW is working on referrals for placement and he declined the need for additional support or resources.? ACS team available as needed?
[2025-08-11 14:26] VITALS: BP 143/98; PULSE 86
--- NOTE | 2025-08-11 14:27 | P.PNPSI_ITS ---
Subjective Subjective Date of Service: 08/11/25 Reason For Visit: Unspecified Depressive Disorder Subjective Notes: Conditional Voluntary Interim History: Chart reviewed. Case discussed w/ team Pt reports that his mood has been up and down. He denies SI. He's been keeping himself busy to distract himself from worries. His goal is to start to love myself. I deserve a decent life . He hasn't contacted his family yet. Will consider contacting his dad in a few days. Interested in referral to substance use tx. Reports good sleep/appetite. Denies sx of ETOH w/d. Medication Compliance: Yes Side effects from medications: Yes Mental Status Exam Mental Status Exam Narrative: Appearance: Casual. Grooming/hygiene and eye contact wnl Attitude: Cooperative Speech: Fluent and wnl in regard to volume, tone, prosody Motor activity: Resting R hand tremor- states it's a chronic issue since wrist surgery. Steady gait Mood: up and down Affect: superficially bright Thought process: Goal directed, no evidence of formal thought disorder Thought content: Denies SI/violent ideation. Future oriented Perception: Denies AH/VH and does not appear to respond to internal stimuli Alert/oriented in all spheres Cognition grossly intact Insight: intact Judgment: intact Diagnostics Vital Signs (24Hr): Vital Signs - 24 hr 08/10/25 16:00 08/10/25 20:11 08/10/25 21:31 Temperature 98.2 F Pulse Rate 78 81 86 Respiratory Rate 16 15 Blood Pressure 128/96 H 154/108 H 136/103 H Pulse Oximetry 98 98 Oxygen Delivery Method Room Air Room Air 08/10/25 22:49 08/11/25 08:04 08/11/25 12:28 Temperature 98.2 F Pulse Rate 78 85 78 Respiratory Rate 16 Blood Pressure 131/96 H 131/93 H 160/107 H Pulse Oximetry 98 100 Oxygen Delivery Method Room Air Room Air 08/11/25 12:40 08/11/25 14:26 Temperature Pulse Rate 78 86 Respiratory Rate Blood Pressure 149/100 H 143/98 H Pulse Oximetry Oxygen Delivery Method BMI result Body Mass Index 25.0 Labs Labs: Laboratory Results - last 48 hr 08/10/25 07:32 Estimat Average Glucose 85 Hemoglobin A1c % 4.6 Triglycerides 129 Cholesterol 203 H LDL Cholesterol, Calc 116 H HDL Cholesterol 62 Medications Medications Current Medications Acetaminophen (Acetaminophen 325 Mg Tablet) 650 mg PO Q6H PRN PRN Reason: Headache/Pain, Scale 1-10 Last Admin: 08/11/25 08:47 Dose: 650 mg Al Hydroxide/Mg Hydroxide (Magnesium Hydrox/Alum Hydrox 30 Ml Oral.Susp) 30 ml PO Q6H PRN PRN Reason: Heartburn/Nausea Allopurinol (Allopurinol 100 Mg Tablet) 100 mg PO DAILY [facility] Last Admin: 08/11/25 08:07 Dose: 100 mg Amlodipine Besylate (Amlodipine Besylate 2.5 Mg Tablet) 7.5 mg PO DAILY [facility]; Protocol Clonidine HCl (Clonidine Hcl 0.1 Mg Tablet) 0.1 mg PO TID PRN; Protocol PRN Reason: High BP & anxiety Last Admin: 08/11/25 12:43 Dose: 0.1 mg Fluoxetine HCl (Fluoxetine Hcl 20 Mg Capsule) 20 mg PO DAILY [facility] Last Admin: 08/11/25 08:07 Dose: 20 mg Hydroxyzine HCl (Hydroxyzine Hcl 25 Mg Tablet) 25 mg PO Q6H PRN PRN Reason: mild anxiety Last Admin: 08/10/25 11:59 Dose: 25 mg Lorazepam (Lorazepam 1 Mg Tablet) 1 mg PO Q2H PRN PRN Reason: CIWA 8-11 Last Admin: 08/10/25 20:14 Dose: 1 mg Lorazepam (Lorazepam 1 Mg Tablet) 2 mg PO Q2H PRN PRN Reason: CIWA 12-15 Losartan Potassium (Losartan Potassium 50 Mg Tablet) 50 mg PO BID [facility]; Protocol Last Admin: 08/11/25 08:08 Dose: 50 mg Magnesium Hydroxide (Milk Of Magnesia 30 Ml Oral.Susp) 30 ml PO DAILY PRN PRN Reason: Constipation Melatonin (Melatonin 3 Mg Tablet) 6 mg PO BEDTIME PRN PRN Reason: Insomnia Last Admin: 08/10/25 00:38 Dose: 6 mg Nicotine (Nicotine 21 Mg Patch.Td24) 21 mg TRANSDERMA DAILY PRN PRN Reason: nicotine craving Nicotine Polacrilex (Nicotine Polacrilex 2 Mg Gum) 4 mg BUCCAL Q2H PRN PRN Reason: Nicotine Cravings Prazosin HCl (Prazosin Hcl 1 Mg Capsule) 2 mg PO BEDTIME [facility]; Protocol Last Admin: 08/10/25 22:51 Dose: 2 mg Risperidone (Risperidone 0.5 Mg Tablet) 0.5 mg PO TID PRN PRN Reason: agitation Risperidone (Risperidone 1 Mg Tablet) 1 mg PO BEDTIME [facility] Last Admin: 08/10/25 22:52 Dose: 1 mg Thiamine HCl (Thiamine Hcl 100 Mg Tablet) 100 mg PO DAILY [facility] Last Admin: 08/11/25 08:08 Dose: 100 mg Trazodone HCl (Trazodone Hcl 50 Mg Tablet) 50 mg PO BEDTIME [facility] Last Admin: 08/10/25 22:52 Dose: 50 mg Allergies Allergies Allergy/AdvReac Type Severity Reaction Status Date / Time lisinopril Allergy Abdominal Verified 08/09/25 15:20 Pain Assessment & Plan Assessment & Plan (1) HTN (hypertension): Status: Acute Code(s): I10 - Essential (primary) hypertension (2) Depressive disorder: Status: Acute Code(s): F32.A - Depression, unspecified (3) Alcohol use disorder: Status: Acute Code(s): F10.90 - Alcohol use, unspecified, uncomplicated (4) Cocaine use disorder in remission: Status: Acute Code(s): F14.91 - Cocaine use, unspecified, in remission Plan Mr. Deng is a 50 yo black M with h/o anxiety, insomnia, alcohol use d/o, cocaine use d/o in remission, and HTN who presented to [facility] to requesting to speak w/ Crisis after having an anxiety attack. He reportedly endorsed SI at the [facility] ED and HI towards his family in general after being kicked out and having no place to go. BAL on arrival to the ED was 243. Pt was transferred to [facility] for safety and stabilization after undergoing medical clearance. Plan: Admitted to [facility] for safety and stabilization 15 min safety checks Continue current home meds psych meds include fluoxetine 40 mg- has helped with anxiety overall, prazosin 2 mg-helps w/ insomnia, trazodone 100 mg qhs- helps with insomnia but a/w vivid dreams Pt is agreeable w/ plan to trial risperidone off-label for anxiety/impulsivity/anger. Will start with .5 mg tonight and add 0.5 mg bid prn CIWA + prn lorazepam for sx of ETOH w/d 08/10: Med correction - pt was started on fluoxetine 20 mg since he hadn't been taking fluoxetine consistently. He had been taking olanzapine 5 mg qhs at home and dose was decreased to 2.5 mg to x titrate to risperidone (0.5 mg last night). He has received 2 mg lorazeapam per CIWA today, currently denies sx of ETOH w/d. Received clonidine .1 mg for HTN today in addition to losartan 50 mg bid. Still hypertensive but improving. Mood has improved denies SI/violent ideation. -Communicated w/ hospitalist re: tx of HTN. She was in the process of meeting w/ pt and will adjust meds as needed. -Pt agreeable w/ plan to d/c olanzapine and increase risperidone to 1 mg starting tonight for off-label tx of mood lability/anxiety. 08/11: Mood has improved overall. Denies sx of w/d. Last received lorazepam yesterday. Will continue current psychotropic med regimen. Hospitalist added amlodipine 2.5 mg at hs for HTN yesterday. Received one time dose of 5 mg today due to ongoing HTN. Will receive 7.5 mg tomorrow. Patient educated on: diagnosis, medication risk/benefits, substance abuse and therapeutic strategies Informed Consent: understands Reason for continued inpatient stay Substantial Risk for: med/psych decompensation Time Spent With Patient Time: Total time managing care of this patient today ____ minutes.
--- NOTE | 2025-08-11 19:08 | PC.NURSE ---
1228 VS 149/100 P 78 right arm sitting automated, 150/104 manually. VS 160/107 P 78 left arm automated, 154/110 manually. Hospitalist, Zoe Martinez, and Dr Yu notified. Prn Clonidine 0.1mg po given at 1243 for anxiety with effect. Order received for Amlodipine 5mg po and given at 1301. VS 143/98 left sitting at 1426.
[2025-08-11 19:55] VITALS: BP 150/103; PULSE 82; RESP 16; TEMP 36.9; O2SAT 99
--- NOTE | 2025-08-11 20:01 | PC.NURSE ---
cozaar given at this time due to elevated BP.
[2025-08-11 21:21] VITALS: BP 140/99; PULSE 89
[2025-08-11 22:58] VITALS: BP 150/101; PULSE 74
[2025-08-12 08:11] VITALS: BP 145/109; PULSE 83; RESP 16; TEMP 36.6; O2SAT 99
[2025-08-12 10:32] VITALS: BP 134/103; PULSE 81
[2025-08-12 12:00] VITALS: BP 129/93; PULSE 78; RESP 16; TEMP 36.6; O2SAT 97
--- NOTE | 2025-08-12 16:38 | P.PNPSI_ITS ---
Subjective Subjective Date of Service: 08/12/25 Reason For Visit: Unspecified Depressive Disorder Subjective Notes: Conditional Voluntary Interim History: Chart reviewed. Case discussed w/ team per nursing report- hasn't scored >4 on CIWA. Attending some grps. Sleep improved- 8 hrs last night. BP remains elevated but trending down Pt reports that he's stressed about his d/c planning since SW hasn't heard back from [facility] and his insurance doesn't cover any other residential recovery programs. He is certain that his dad and other family will not allow him to live w/ them since he's burned too many bridges. He's upset that they've given up on him but states that he doesn't blame them based on his previous behaviors and struggles w/ substance abuse. He again reports long h/o problems w/ impulse control and anger. Feels like the risperidone is helping w/ distress tolerance here but worries how he'll cope in a long term. He's agreeable w/ titrating the dose and denies med SE. He states I hate being alive but states that he wouldn't harm himself due to his herbert and his children. Medication Compliance: Yes Side effects from medications: No Mental Status Exam Mental Status Exam Narrative: Appearance: Casual. Grooming/hygiene and eye contact wnl Attitude: Cooperative Speech: Fluent and wnl in regard to volume, tone, prosody Motor activity: Calm. Steady gait. No dyskinesias Mood: stressed Affect: superficially bright Thought process: Goal directed, no evidence of formal thought disorder Thought content: pdw, no active SI. Denies violent ideation. Overwhelmed but future oriented Perception: Denies AH/VH and does not appear to respond to internal stimuli Alert/oriented in all spheres Cognition grossly intact Insight: intact Judgment: intact Diagnostics Vital Signs (24Hr): Vital Signs - 24 hr 08/11/25 19:55 08/11/25 21:21 08/11/25 22:58 Temperature 98.4 F Pulse Rate 82 89 74 Respiratory Rate 16 Blood Pressure 150/103 H 140/99 H 150/101 H Pulse Oximetry 99 Oxygen Delivery Method Room Air 08/12/25 08:11 08/12/25 10:32 08/12/25 12:00 Temperature 98 F 97.9 F Pulse Rate 83 81 78 Respiratory Rate 16 16 Blood Pressure 145/109 H 134/103 H 129/93 H Pulse Oximetry 99 97 Oxygen Delivery Method Room Air Room Air BMI result Body Mass Index 25.0 Medications Medications Current Medications Acetaminophen (Acetaminophen 325 Mg Tablet) 650 mg PO Q6H PRN PRN Reason: Headache/Pain, Scale 1-10 Last Admin: 08/11/25 08:47 Dose: 650 mg Al Hydroxide/Mg Hydroxide (Magnesium Hydrox/Alum Hydrox 30 Ml Oral.Susp) 30 ml PO Q6H PRN PRN Reason: Heartburn/Nausea Allopurinol (Allopurinol 100 Mg Tablet) 100 mg PO DAILY [facility] Last Admin: 08/12/25 08:13 Dose: 100 mg Amlodipine Besylate (Amlodipine Besylate 2.5 Mg Tablet) 7.5 mg PO DAILY [facility]; Protocol Last Admin: 08/12/25 08:12 Dose: 7.5 mg Clonidine HCl (Clonidine Hcl 0.1 Mg Tablet) 0.1 mg PO TID PRN; Protocol PRN Reason: High BP & anxiety Last Admin: 08/12/25 08:15 Dose: 0.1 mg Fluoxetine HCl (Fluoxetine Hcl 20 Mg Capsule) 20 mg PO DAILY [facility] Last Admin: 08/12/25 08:13 Dose: 20 mg Hydroxyzine HCl (Hydroxyzine Hcl 25 Mg Tablet) 25 mg PO Q6H PRN PRN Reason: mild anxiety Last Admin: 08/12/25 15:05 Dose: 25 mg Lorazepam (Lorazepam 1 Mg Tablet) 1 mg PO Q2H PRN PRN Reason: CIWA 8-11 Last Admin: 08/10/25 20:14 Dose: 1 mg Lorazepam (Lorazepam 1 Mg Tablet) 2 mg PO Q2H PRN PRN Reason: CIWA 12-15 Losartan Potassium (Losartan Potassium 50 Mg Tablet) 50 mg PO BID [facility]; Protocol Last Admin: 08/12/25 08:13 Dose: 50 mg Magnesium Hydroxide (Milk Of Magnesia 30 Ml Oral.Susp) 30 ml PO DAILY PRN PRN Reason: Constipation Melatonin (Melatonin 3 Mg Tablet) 6 mg PO BEDTIME PRN PRN Reason: Insomnia Last Admin: 08/10/25 00:38 Dose: 6 mg Nicotine (Nicotine 21 Mg Patch.Td24) 21 mg TRANSDERMA DAILY PRN PRN Reason: nicotine craving Nicotine Polacrilex (Nicotine Polacrilex 2 Mg Gum) 4 mg BUCCAL Q2H PRN PRN Reason: Nicotine Cravings Prazosin HCl (Prazosin Hcl 1 Mg Capsule) 2 mg PO BEDTIME MACIE; Protocol Last Admin: 08/11/25 22:59 Dose: 2 mg Risperidone (Risperidone 0.5 Mg Tablet) 0.5 mg PO TID PRN PRN Reason: agitation Risperidone (Risperidone 1 Mg Tablet) 1 mg PO BEDTIME MACIE Last Admin: 08/11/25 23:00 Dose: 1 mg Thiamine HCl (Thiamine Hcl 100 Mg Tablet) 100 mg PO DAILY MACIE Last Admin: 08/12/25 08:13 Dose: 100 mg Trazodone HCl (Trazodone Hcl 50 Mg Tablet) 50 mg PO BEDTIME MACIE Last Admin: 08/11/25 22:59 Dose: 50 mg Allergies Allergies Allergy/AdvReac Type Severity Reaction Status Date / Time lisinopril Allergy Abdominal Verified 08/09/25 15:20 Pain Assessment & Plan Assessment & Plan (1) Depressive disorder: Status: Acute Code(s): F32.A - Depression, unspecified (2) Alcohol use disorder: Status: Acute Code(s): F10.90 - Alcohol use, unspecified, uncomplicated (3) Cocaine use disorder in remission: Status: Acute Code(s): F14.91 - Cocaine use, unspecified, in remission (4) HTN (hypertension): Status: Acute Code(s): I10 - Essential (primary) hypertension Plan Mr. Deng is a 50 yo black M with h/o anxiety, insomnia, alcohol use d/o, cocaine use d/o in remission, and HTN who presented to [facility] to requesting to speak w/ Crisis after having an anxiety attack. He reportedly endorsed SI at the [facility] ED and HI towards his family in general after being kicked out and having no place to go. BAL on arrival to the ED was 243. Pt was transferred to [facility] for safety and stabilization after undergoing medical clearance. Plan: Admitted to [facility] for safety and stabilization 15 min safety checks Continue current home meds psych meds include fluoxetine 40 mg- has helped with anxiety overall, prazosin 2 mg-helps w/ insomnia, trazodone 100 mg qhs- helps with insomnia but a/w vivid dreams Pt is agreeable w/ plan to trial risperidone off-label for anxiety/impulsivity/anger. Will start with .5 mg tonight and add 0.5 mg bid prn CIWA + prn lorazepam for sx of ETOH w/d 08/10: Med correction - pt was started on fluoxetine 20 mg since he hadn't been taking fluoxetine consistently. He had been taking olanzapine 5 mg qhs at home and dose was decreased to 2.5 mg to x titrate to risperidone (0.5 mg last night). He has received 2 mg lorazeapam per CIWA today, currently denies sx of ETOH w/d. Received clonidine .1 mg for HTN today in addition to losartan 50 mg bid. Still hypertensive but improving. Mood has improved denies SI/violent ideation. -Communicated w/ hospitalist re: tx of HTN. She was in the process of meeting w/ pt and will adjust meds as needed. -Pt agreeable w/ plan to d/c olanzapine and increase risperidone to 1 mg starting tonight for off-label tx of mood lability/anxiety. 08/11: Mood has improved overall. Denies sx of w/d. Last received lorazepam yesterday. Will continue current psychotropic med regimen. Hospitalist added amlodipine 2.5 mg at hs for HTN yesterday. Received one time dose of 5 mg today due to ongoing HTN. Will receive 7.5 mg tomorrow. 08/12: Pt has not scored >4 on CIWA. Will d/c CIWA and prn lorazepam for ETOH w/d. HTN improving w/ amlodipine, increased this am to 7.5 mg. Pt is anxious about d/c planning and possibility that he'll have to go to a long term. Denies active SI/violent ideation, V. -Pt agreeable w/ plan to increase risperidone to 2 mg qhs to target anxiety, agitation, anger- improved overall. Patient educated on: diagnosis, medication risk/benefits, substance abuse and therapeutic strategies Informed Consent: understands Reason for continued inpatient stay Substantial Risk for: med/psych decompensation Time Spent With Patient Time: Total time managing care of this patient today ____ minutes.
[2025-08-12 19:20] VITALS: BP 154/106; PULSE 78; RESP 16; TEMP 36.6; O2SAT 99
[2025-08-12 21:21] VITALS: BP 153/104
[2025-08-13 08:37] VITALS: BP 149/103; PULSE 81; RESP 16; TEMP 36.7; O2SAT 100
--- NOTE | 2025-08-13 14:13 | P.PNPSI_ITS ---
Subjective Subjective Date of Service: 08/13/25 Reason For Visit: Unspecified Depressive Disorder Interim History: Active on unit. social with peers. attending groups. Patient reports feeling a little anxious because I'm hoping to get a bed at the [facility] ; denies SI/HI/VH/AH. He rpeorts sleeping well last night. Continue tx plan. Medication Compliance: Yes Side effects from medications: No Mental Status Exam Mental Status Exam Patient Appearance: Well Grooomed Patient Orientation: Person, Place, Time and Situation Level of Consciousness: Awake and Alert Patient Behavior: Appropriate, Cooperative and Good Eye Contact Mood Description: Calm Affect Description: Calm Ability to Follow Directions: Good Speech Pattern: Clear Memory Description: Intact Hallucinations: None Delusions: Not Present Thought Process: Intact and Goal Oriented Thought Content: positive for Intact Diagnostics Vital Signs (24Hr): Vital Signs - 24 hr 08/12/25 19:20 08/12/25 21:21 08/13/25 08:37 Temperature 97.9 F 98.0 F Pulse Rate 78 81 Respiratory Rate 16 16 Blood Pressure 154/106 H 153/104 H 149/103 H Pulse Oximetry 99 100 Oxygen Delivery Method Room Air Room Air BMI result Body Mass Index 25.0 Medications Medications Current Medications Acetaminophen (Acetaminophen 325 Mg Tablet) 650 mg PO Q6H PRN PRN Reason: Headache/Pain, Scale 1-10 Last Admin: 08/13/25 08:43 Dose: 650 mg Al Hydroxide/Mg Hydroxide (Magnesium Hydrox/Alum Hydrox 30 Ml Oral.Susp) 30 ml PO Q6H PRN PRN Reason: Heartburn/Nausea Allopurinol (Allopurinol 100 Mg Tablet) 100 mg PO DAILY [facility] Last Admin: 08/13/25 08:39 Dose: 100 mg Amlodipine Besylate (Amlodipine Besylate 2.5 Mg Tablet) 7.5 mg PO DAILY [facility]IE; Protocol Last Admin: 08/13/25 08:42 Dose: 7.5 mg Clonidine HCl (Clonidine Hcl 0.1 Mg Tablet) 0.1 mg PO TID PRN; Protocol PRN Reason: High BP & anxiety Last Admin: 08/12/25 08:15 Dose: 0.1 mg Fluoxetine HCl (Fluoxetine Hcl 20 Mg Capsule) 20 mg PO DAILY [facility] Last Admin: 08/13/25 08:39 Dose: 20 mg Hydroxyzine HCl (Hydroxyzine Hcl 25 Mg Tablet) 25 mg PO Q6H PRN PRN Reason: mild anxiety Last Admin: 08/13/25 14:01 Dose: 25 mg Losartan Potassium (Losartan Potassium 50 Mg Tablet) 50 mg PO BID [facility]IE; Protocol Last Admin: 08/13/25 08:39 Dose: 50 mg Magnesium Hydroxide (Milk Of Magnesia 30 Ml Oral.Susp) 30 ml PO DAILY PRN PRN Reason: Constipation Melatonin (Melatonin 3 Mg Tablet) 6 mg PO BEDTIME PRN PRN Reason: Insomnia Last Admin: 08/10/25 00:38 Dose: 6 mg Nicotine (Nicotine 21 Mg Patch.Td24) 21 mg TRANSDERMA DAILY PRN PRN Reason: nicotine craving Nicotine Polacrilex (Nicotine Polacrilex 2 Mg Gum) 4 mg BUCCAL Q2H PRN PRN Reason: Nicotine Cravings Prazosin HCl (Prazosin Hcl 1 Mg Capsule) 2 mg PO BEDTIME MACIE; Protocol Last Admin: 08/12/25 21:21 Dose: 2 mg Risperidone (Risperidone 0.5 Mg Tablet) 0.5 mg PO TID PRN PRN Reason: agitation Risperidone (Risperidone 2 Mg Tablet) 2 mg PO BEDTIME MACIE Last Admin: 08/12/25 21:21 Dose: 2 mg Thiamine HCl (Thiamine Hcl 100 Mg Tablet) 100 mg PO DAILY [facility] Last Admin: 08/13/25 08:39 Dose: 100 mg Trazodone HCl (Trazodone Hcl 50 Mg Tablet) 50 mg PO BEDTIME MACIE Last Admin: 08/12/25 21:20 Dose: 50 mg Allergies Allergies Allergy/AdvReac Type Severity Reaction Status Date / Time lisinopril Allergy Abdominal Verified 08/09/25 15:20 Pain Assessment & Plan Assessment & Plan (1) Depressive disorder: Status: Acute Code(s): F32.A - Depression, unspecified (2) Alcohol use disorder: Status: Acute Code(s): F10.90 - Alcohol use, unspecified, uncomplicated (3) Cocaine use disorder in remission: Status: Acute Code(s): F14.91 - Cocaine use, unspecified, in remission (4) HTN (hypertension): Status: Acute Code(s): I10 - Essential (primary) hypertension Plan Mr. Deng is a 50 yo black M with h/o anxiety, insomnia, alcohol use d/o, cocaine use d/o in remission, and HTN who presented to [facility] to requesting to speak w/ Crisis after having an anxiety attack. He reportedly endorsed SI at the [facility] ED and HI towards his family in general after being kicked out and having no place to go. BAL on arrival to the ED was 243. Pt was transferred to [facility] for safety and stabilization after undergoing medical clearance. Plan: Admitted to [facility] for safety and stabilization 15 min safety checks Continue current home meds psych meds include fluoxetine 40 mg- has helped with anxiety overall, prazosin 2 mg-helps w/ insomnia, trazodone 100 mg qhs- helps with insomnia but a/w vivid dreams Pt is agreeable w/ plan to trial risperidone off-label for anxiety/impulsivity/anger. Will start with .5 mg tonight and add 0.5 mg bid prn CIWA + prn lorazepam for sx of ETOH w/d 08/10: Med correction - pt was started on fluoxetine 20 mg since he hadn't been taking fluoxetine consistently. He had been taking olanzapine 5 mg qhs at home and dose was decreased to 2.5 mg to x titrate to risperidone (0.5 mg last night). He has received 2 mg lorazeapam per CIWA today, currently denies sx of ETOH w/d. Received clonidine .1 mg for HTN today in addition to losartan 50 mg bid. Still hypertensive but improving. Mood has improved denies SI/violent ideation. -Communicated w/ hospitalist re: tx of HTN. She was in the process of meeting w/ pt and will adjust meds as needed. -Pt agreeable w/ plan to d/c olanzapine and increase risperidone to 1 mg starting tonight for off-label tx of mood lability/anxiety. 08/11: Mood has improved overall. Denies sx of w/d. Last received lorazepam yesterday. Will continue current psychotropic med regimen. Hospitalist added amlodipine 2.5 mg at hs for HTN yesterday. Received one time dose of 5 mg today due to ongoing HTN. Will receive 7.5 mg tomorrow. 08/12: Pt has not scored >4 on CIWA. Will d/c CIWA and prn lorazepam for ETOH w/d. HTN improving w/ amlodipine, increased this am to 7.5 mg. Pt is anxious about d/c planning and possibility that he'll have to go to a intermediate. Denies active SI/violent ideation, AHVH. -Pt agreeable w/ plan to increase risperidone to 2 mg qhs to target anxiety, agitation, anger- improved overall. 08/13:Active on unit. social with peers. attending groups. Patient reports feeling a little anxious because I'm hoping to get a bed at the [facility] ; denies SI/HI/VH/AH. He rpeorts sleeping well last night. Continue tx plan. Patient educated on: diagnosis and medication risk/benefits Reason for continued inpatient stay Substantial Risk for: med/psych decompensation Time Spent With Patient Time: Total time managing care of this patient today _20___ minutes.
[2025-08-13 20:41] VITALS: BP 164/116; PULSE 79; RESP 16; TEMP 36.7; O2SAT 99
[2025-08-13 21:43] VITALS: BP 128/83
[2025-08-14 08:30] VITALS: BP 129/71; PULSE 97; RESP 18; O2SAT 98
--- NOTE | 2025-08-14 12:19 | P.PNPSI_ITS ---
Subjective Subjective Date of Service: 08/14/25 Reason For Visit: Unspecified Depressive Disorder Interim History: Active on unit. social with peers. attending groups. Patient reports feeling okay today; pt stated, I spoke with my father on the phone and that went well. I'm still hoping to get into a program. If I don't then I'll go to a penitentiary . denies SI/HI/VH/AH. Continue tx plan. Medication Compliance: Yes Side effects from medications: No Attending Groups: Yes Mental Status Exam Mental Status Exam Patient Appearance: Well Grooomed Patient Orientation: Person, Place, Time and Situation Level of Consciousness: Awake and Alert Patient Behavior: Appropriate, Cooperative and Good Eye Contact Mood Description: Calm Affect Description: Calm Ability to Follow Directions: Good Speech Pattern: Clear Memory Description: Intact Hallucinations: None Delusions: Not Present Thought Process: Intact Thought Content: positive for Intact Diagnostics Vital Signs (24Hr): Vital Signs - 24 hr 08/13/25 20:41 08/13/25 21:43 08/14/25 08:30 Temperature 98.0 F Pulse Rate 79 97 Respiratory Rate 16 18 Blood Pressure 164/116 H 128/83 129/71 Pulse Oximetry 99 98 Oxygen Delivery Method Room Air Room Air BMI result Body Mass Index 25.0 Medications Medications Current Medications Acetaminophen (Acetaminophen 325 Mg Tablet) 650 mg PO Q6H PRN PRN Reason: Headache/Pain, Scale 1-10 Last Admin: 08/13/25 08:43 Dose: 650 mg Al Hydroxide/Mg Hydroxide (Magnesium Hydrox/Alum Hydrox 30 Ml Oral.Susp) 30 ml PO Q6H PRN PRN Reason: Heartburn/Nausea Allopurinol (Allopurinol 100 Mg Tablet) 100 mg PO DAILY [facility]IE Last Admin: 08/14/25 08:38 Dose: 100 mg Amlodipine Besylate (Amlodipine Besylate 2.5 Mg Tablet) 7.5 mg PO DAILY [facility]; Protocol Last Admin: 08/14/25 08:38 Dose: 7.5 mg Clonidine HCl (Clonidine Hcl 0.1 Mg Tablet) 0.1 mg PO TID PRN; Protocol PRN Reason: High BP & anxiety Last Admin: 08/12/25 08:15 Dose: 0.1 mg Fluoxetine HCl (Fluoxetine Hcl 20 Mg Capsule) 20 mg PO DAILY [facility]IE Last Admin: 08/14/25 08:39 Dose: 20 mg Hydroxyzine HCl (Hydroxyzine Hcl 25 Mg Tablet) 25 mg PO Q6H PRN PRN Reason: mild anxiety Last Admin: 08/13/25 14:01 Dose: 25 mg Losartan Potassium (Losartan Potassium 50 Mg Tablet) 50 mg PO BID [facility]IE; Protocol Last Admin: 08/14/25 08:40 Dose: 50 mg Magnesium Hydroxide (Milk Of Magnesia 30 Ml Oral.Susp) 30 ml PO DAILY PRN PRN Reason: Constipation Melatonin (Melatonin 3 Mg Tablet) 6 mg PO BEDTIME PRN PRN Reason: Insomnia Last Admin: 08/10/25 00:38 Dose: 6 mg Nicotine (Nicotine 21 Mg Patch.Td24) 21 mg TRANSDERMA DAILY PRN PRN Reason: nicotine craving Nicotine Polacrilex (Nicotine Polacrilex 2 Mg Gum) 4 mg BUCCAL Q2H PRN PRN Reason: Nicotine Cravings Prazosin HCl (Prazosin Hcl 1 Mg Capsule) 2 mg PO BEDTIME MACIE; Protocol Last Admin: 08/13/25 21:43 Dose: 2 mg Risperidone (Risperidone 0.5 Mg Tablet) 0.5 mg PO TID PRN PRN Reason: agitation Risperidone (Risperidone 2 Mg Tablet) 2 mg PO BEDTIME MACIE Last Admin: 08/13/25 21:44 Dose: 2 mg Thiamine HCl (Thiamine Hcl 100 Mg Tablet) 100 mg PO DAILY [facility]IE Last Admin: 08/14/25 08:40 Dose: 100 mg Trazodone HCl (Trazodone Hcl 50 Mg Tablet) 50 mg PO BEDTIME MACIE Last Admin: 08/13/25 21:44 Dose: 50 mg Allergies Allergies Allergy/AdvReac Type Severity Reaction Status Date / Time lisinopril Allergy Abdominal Verified 08/09/25 15:20 Pain Assessment & Plan Assessment & Plan (1) Depressive disorder: Status: Acute Code(s): F32.A - Depression, unspecified (2) Alcohol use disorder: Status: Acute Code(s): F10.90 - Alcohol use, unspecified, uncomplicated (3) Cocaine use disorder in remission: Status: Acute Code(s): F14.91 - Cocaine use, unspecified, in remission (4) HTN (hypertension): Status: Acute Code(s): I10 - Essential (primary) hypertension Plan Mr. Deng is a 50 yo black M with h/o anxiety, insomnia, alcohol use d/o, cocaine use d/o in remission, and HTN who presented to [facility] to requesting to speak w/ Crisis after having an anxiety attack. He reportedly endorsed SI at the [facility] ED and HI towards his family in general after being kicked out and having no place to go. BAL on arrival to the ED was 243. Pt was transferred to [facility] for safety and stabilization after undergoing medical clearance. Plan: Admitted to [facility] for safety and stabilization 15 min safety checks Continue current home meds psych meds include fluoxetine 40 mg- has helped with anxiety overall, prazosin 2 mg-helps w/ insomnia, trazodone 100 mg qhs- helps with insomnia but a/w vivid dreams Pt is agreeable w/ plan to trial risperidone off-label for a nxiety/impulsivity/anger. Will start with .5 mg tonight and add 0.5 mg bid prn CIWA + prn lorazepam for sx of ETOH w/d 08/10: Med correction - pt was started on fluoxetine 20 mg since he hadn't been taking fluoxetine consistently. He had been taking olanzapine 5 mg qhs at home and dose was decreased to 2.5 mg to x titrate to risperidone (0.5 mg last night). He has received 2 mg lorazeapam per CIWA today, currently denies sx of ETOH w/d. Received clonidine .1 mg for HTN today in addition to losartan 50 mg bid. Still hypertensive but improving. Mood has improved denies SI/violent ideation. -Communicated w/ hospitalist re: tx of HTN. She was in the process of meeting w/ pt and will adjust meds as needed. -Pt agreeable w/ plan to d/c olanzapine and increase risperidone to 1 mg starting tonight for off-label tx of mood lability/anxiety. 08/11: Mood has improved overall. Denies sx of w/d. Last received lorazepam yesterday. Will continue current psychotropic med regimen. Hospitalist added amlodipine 2.5 mg at hs for HTN yesterday. Received one time dose of 5 mg today due to ongoing HTN. Will receive 7.5 mg tomorrow. 08/12: Pt has not scored >4 on CIWA. Will d/c CIWA and prn lorazepam for ETOH w/d. HTN improving w/ amlodipine, increased this am to 7.5 mg. Pt is anxious about d/c planning and possibility that he'll have to go to a penitentiary. Denies active SI/violent ideation, AHVH. -Pt agreeable w/ plan to increase risperidone to 2 mg qhs to target anxiety, agitation, anger- improved overall. 08/13:Active on unit. social with peers. attending groups. Patient reports feel ing a little anxious because I'm hoping to get a bed at the [facility] ; denies SI/HI/VH/AH. He rpeorts sleeping well last night. Continue tx plan. 08/14: continue tx plan. Patient educated on: diagnosis and medication risk/benefits Reason for continued inpatient stay Substantial Risk for: med/psych decompensation Time Spent With Patient Time: Total time managing care of this patient today _20___ minutes.
[2025-08-14 19:45] VITALS: BP 143/104; PULSE 87; RESP 16; TEMP 36.7; O2SAT 99
[2025-08-15 00:30] VITALS: BP 135/97
[2025-08-15 08:42] VITALS: BP 143/81; PULSE 89; O2SAT 99
--- NOTE | 2025-08-15 19:54 | P.PNPSI_ITS ---
Subjective Subjective Date of Service: 08/15/25 Reason For Visit: Unspecified Depressive Disorder Subjective Notes: Blue Warning and Conditional Voluntary Healthcare Proxy: No Guardianship: No Medical Problems Affecting Mental Status: No Interim History: Medical record and nursing notes reviewed; case discussed during rounds with team/nursing staff, and met with patient for supportive therapy/psychoeducation, as well as medication management. Patient reports sleep is improving same with appetite. Reports he has a good news today as his parents able to sell his truck and gets some money. Reported that mood still kind of up and down, anxious and depressed 5/10 which is improving. Patient shared that this is a very terrible year for him and he has been going through a lot. Be sectioned a couple of them for the safety concerns. Patient said that he is learning how to leave the past behind so that he can moving forward for the future. He hopes that he can get into the program somewhere in this area. Denies safety concerns, or hallucinations. We discussed with patient regarding Prozac which will be increased up to 40 mg to target anxiety and depression/PTSD symptoms. Also due to the mood unsteady- nursing reported the patient having couple outburst-mild over the weekends regarding food was sent wrong up here for him. Appeared to be anxious, depressed, with potential impulsive. Therefore we will increase the risperidone up to 3 total mg a day in divided dose. Risperidone 1mg in the AM and 2 mg at HS Prozac increased from 20 mg up to 40 mg start tomorrow depression/anxiety. Blood pressure appeared to be under control medications. Medication Compliance: Yes Side effects from medications: No Attending Groups: Yes Review of Systems Acute medical concerns: No Medical Review of Systems: unchanged Review of Systems Review of Systems Patient has no acute medical complaints at this time All other systems are reviewed and are negative Yes all other systems are reviewed and are negative Mental Status Exam Mental Status Exam Narrative: Appearance: Casual. Grooming/hygiene and eye contact wnl Attitude: Cooperative Speech: Fluent and wnl in regard to volume, tone, prosody Motor activity: Calm mostly but anxious and depressed. Steady gait. No dyskinesias Mood: improving Affect: bright Thought process: Goal directed, no evidence of formal thought disorder Thought content: no active SI. Denies violent ideation. Less overwhelmed and f uture oriented/focus Perception: Denies AH/VH and does not appear to respond to internal stimuli Alert/oriented in all spheres Cognition grossly intact Insight: intact Judgment: intact Diagnostics Vital Signs (24Hr): Vital Signs - 24 hr 08/15/25 00:30 08/15/25 08:42 Pulse Rate 89 Blood Pressure 135/97 H 143/81 H Pulse Oximetry 99 Oxygen Delivery Method Room Air BMI result Body Mass Index 25.0 Medications Medications Current Medications Acetaminophen (Acetaminophen 325 Mg Tablet) 650 mg PO Q6H PRN PRN Reason: Headache/Pain, Scale 1-10 Last Admin: 08/13/25 08:43 Dose: 650 mg Al Hydroxide/Mg Hydroxide (Magnesium Hydrox/Alum Hydrox 30 Ml Oral.Susp) 30 ml PO Q6H PRN PRN Reason: Heartburn/Nausea Allopurinol (Allopurinol 100 Mg Tablet) 100 mg PO DAILY [facility] Last Admin: 08/15/25 08:43 Dose: 100 mg Amlodipine Besylate (Amlodipine Besylate 2.5 Mg Tablet) 7.5 mg PO DAILY MACIE; Protocol Last Admin: 08/15/25 08:43 Dose: 7.5 mg Clonidine HCl (Clonidine Hcl 0.1 Mg Tablet) 0.1 mg PO TID PRN; Protocol PRN Reason: High BP & anxiety Last Admin: 08/14/25 20:34 Dose: 0.1 mg Fluoxetine HCl (Fluoxetine Hcl 20 Mg Capsule) 40 mg PO DAILY MACIE Hydroxyzine HCl (Hydroxyzine Hcl 25 Mg Tablet) 25 mg PO Q6H PRN PRN Reason: mild anxiety Last Admin: 08/15/25 14:20 Dose: 25 mg Losartan Potassium (Losartan Potassium 50 Mg Tablet) 50 mg PO BID MACIE; Protocol Last Admin: 08/15/25 08:43 Dose: 50 mg Magnesium Hydroxide (Milk Of Magnesia 30 Ml Oral.Susp) 30 ml PO DAILY PRN PRN Reason: Constipation Melatonin (Melatonin 3 Mg Tablet) 6 mg PO BEDTIME PRN PRN Reason: Insomnia Last Admin: 08/10/25 00:38 Dose: 6 mg Nicotine (Nicotine 21 Mg Patch.Td24) 21 mg TRANSDERMA DAILY PRN PRN Reason: nicotine craving Nicotine Polacrilex (Nicotine Polacrilex 2 Mg Gum) 4 mg BUCCAL Q2H PRN PRN Reason: Nicotine Cravings Prazosin HCl (Prazosin Hcl 1 Mg Capsule) 2 mg PO BEDTIME MACIE; Protocol Last Admin: 08/14/25 20:34 Dose: 2 mg Risperidone (Risperidone 0.5 Mg Tablet) 0.5 mg PO TID PRN PRN Reason: agitation Risperidone (Risperidone 2 Mg Tablet) 2 mg PO BEDTIME [facility] Last Admin: 08/14/25 20:34 Dose: 2 mg Risperidone (Risperidone 1 Mg Tablet) 1 mg PO DAILY MACIE Thiamine HCl (Thiamine Hcl 100 Mg Tablet) 100 mg PO DAILY [facility] Last Admin: 08/15/25 08:43 Dose: 100 mg Trazodone HCl (Trazodone Hcl 50 Mg Tablet) 50 mg PO BEDTIME [facility] Last Admin: 08/14/25 20:34 Dose: 50 mg Allergies Allergies Allergy/AdvReac Type Severity Reaction Status Date / Time lisinopril Allergy Abdominal Verified 08/09/25 15:20 Pain Assessment & Plan Assessment & Plan (1) Depressive disorder: Status: Acute Code(s): F32.A - Depression, unspecified (2) Alcohol use disorder: Status: Acute Code(s): F10.90 - Alcohol use, unspecified, uncomplicated (3) Cocaine use disorder in remission: Status: Acute Code(s): F14.91 - Cocaine use, unspecified, in remission (4) HTN (hypertension): Status: Acute Code(s): I10 - Essential (primary) hypertension Plan Mr. Deng is a 50 yo black M with h/o anxiety, insomnia, alcohol use d/o, cocaine use d/o in remission, and HTN who presented to [facility] to requesting to speak w/ Crisis after having an anxiety attack. He reportedly endorsed SI at the [facility] ED and HI towards his family in general after being kicked out and having no place to go. BAL on arrival to the ED was 243. Pt was transferred to [facility] for safety and stabilization after undergoing medical clearance. Plan: Admitted to [facility] for safety and stabilization 15 min safety checks Continue current home meds psych meds include fluoxetine 40 mg- has helped with anxiety overall, prazosin 2 mg-helps w/ insomnia, trazodone 100 mg qhs- helps with insomnia but a/w vivid dreams Pt is agreeable w/ plan to trial risperidone off-label for anxiety/impulsivity/anger. Will start with .5 mg tonight and add 0.5 mg bid prn CIWA + prn lorazepam for sx of ETOH w/d 08/10: Med correction - pt was started on fluoxetine 20 mg since he hadn't been taking fluoxetine consistently. He had been taking olanzapine 5 mg qhs at home and dose was decreased to 2.5 mg to x titrate to risperidone (0.5 mg last night). He has received 2 mg lorazeapam per CIWA today, currently denies sx of ETOH w/d. Received clonidine .1 mg for HTN today in addition to losartan 50 mg bid. Still hypertensive but improving. Mood has improved denies SI/violent ideation. -Communicated w/ hospitalist re: tx of HTN. She was in the process of meeting w/ pt and will adjust meds as needed. -Pt agreeable w/ plan to d/c olanzapine and increase risperidone to 1 mg starting tonight for off-label tx of mood lability/anxiety. 08/11: Mood has improved overall. Denies sx of w/d. Last received lorazepam yesterday. Will continue current psychotropic med regimen. Hospitalist added amlodipine 2.5 mg at hs for HTN yesterday. Received one time dose of 5 mg today due to ongoing HTN. Will receive 7.5 mg tomorrow. 08/12: Pt has not scored >4 on CIWA. Will d/c CIWA and prn lorazepam for ETOH w/d. HTN improving w/ amlodipine, increased this am to 7.5 mg. Pt is anxious about d/c planning and possibility that he'll have to go to a senior care. Denies active SI/violent ideation, AHVH. -Pt agreeable w/ plan to increase risperidone to 2 mg qhs to target anxiety, agitation, anger- improved overall. 08/13:Active on unit. social with peers. attending groups. Patient reports feeling a little anxious because I'm hoping to get a bed at the [facility] ; denies SI/HI/VH/AH. He rpeorts sleeping well last night. Continue tx plan. 08/14: continue tx plan. 08/15/25:Patient reports sleep is improving, same with appetite. Reports he has a good news today as his parents able to sell his truck and gets some money. Reported that mood still kind of up and down, anxious and depressed /10 which is improving. Patient shared that this is a very terrible year for him and he has been going through a lot. Be sectioned a couple of them for the safety concerns. Patient said that he is learning how to leave the past behind so that he can moving forward for the future. He hopes that he can get into the program somewhere in this area. Denies safety concerns, or hallucinations. We discussed with patient regarding Prozac which will be increased up to 40 mg to target anxiety and depression/PTSD symptoms. Also due to the mood unsteady-nu rsing reported the patient having couple outburst-mild over the weekends regarding food was sent wrong up here for him. Appeared to be anxious, depressed, with potential impulsive. Therefore we will increase the risperidone up to 3 total mg a day in divided dose. Risperidone 1mg in the AM and 2 mg at HS Prozac increased from 20 mg up to 40 mg start tomorrow depression/anxiety. Blood pressure appeared to be under control medications. Patient educated on: diagnosis, medication risk/benefits and therapeutic strategies Informed Consent: understands and further education needed Reason for continued inpatient stay Substantial Risk for: med/psych decompensation Time Spent With Patient Time: Total time managing care of this patient today ____ minutes.
[2025-08-15 20:00] VITALS: BP 122/85; PULSE 85; RESP 18; TEMP 36.4; O2SAT 97
[2025-08-16 03:33] VITALS: BP 118/84
[2025-08-16 08:00] VITALS: BP 113/83; PULSE 82; RESP 16; TEMP 36.5; O2SAT 99
[2025-08-16 08:17] VITALS: BP 113/83
[2025-08-16 16:43] VITALS: BP 138/100
--- NOTE | 2025-08-16 18:36 | P.PNPSI_ITS ---
Subjective Subjective Date of Service: 08/16/25 Reason For Visit: Unspecified Depressive Disorder Subjective Notes: Conditional Voluntary Interim History: Chart reviewed. Case discussed w/ team Pt reports that his mood has improved overall and he's feeling more optimistic about his future. He felt significant relief after talking to his dad yesterday. He is hoping to get into the [facility] and is focused on his sobriety. He tolerated the med changes well and denies any med SE. No behavioral issues. Denies SI/violent ideation, AHVH Medication Compliance: Yes Side effects from medications: No Attending Groups: Yes Mental Status Exam Mental Status Exam Narrative: Appearance: Casual. Grooming/hygiene and eye contact wnl Attitude: Cooperative Speech: Fluent and wnl in regard to volume, tone, prosody Motor activity: Steady gait. No dyskinesias Mood: somewhat anxious and depressed but much better overall. Affect: appropriate, reactive, generally bright Thought process: Goal directed, no evidence of formal thought disorder Thought content: no active SI. Denies violent ideation. future oriented Perception: Denies AH/VH and does not appear to respond to internal stimuli Alert/oriented in all spheres Cognition grossly intact Insight: intact Judgment: intact Diagnostics Vital Signs (24Hr): Vital Signs - 24 hr 08/15/25 20:00 08/16/25 03:33 08/16/25 08:00 Temperature 97.5 F 97.7 F Pulse Rate 85 82 Respiratory Rate 18 16 Blood Pressure 122/85 118/84 113/83 Pulse Oximetry 97 99 Oxygen Delivery Method Room Air Room Air 08/16/25 08:17 08/16/25 08:17 08/16/25 16:43 Temperature Pulse Rate Respiratory Rate Blood Pressure 113/83 113/83 138/100 H Pulse Oximetry Oxygen Delivery Method BMI result Body Mass Index 25.0 Medications Medications Current Medications Acetaminophen (Acetaminophen 325 Mg Tablet) 650 mg PO Q6H PRN PRN Reason: Headache/Pain, Scale 1-10 Last Admin: 08/13/25 08:43 Dose: 650 mg Al Hydroxide/Mg Hydroxide (Magnesium Hydrox/Alum Hydrox 30 Ml Oral.Susp) 30 ml PO Q6H PRN PRN Reason: Heartburn/Nausea Allopurinol (Allopurinol 100 Mg Tablet) 100 mg PO DAILY MACIE Last Admin: 08/16/25 08:17 Dose: 100 mg Amlodipine Besylate (Amlodipine Besylate 2.5 Mg Tablet) 7.5 mg PO DAILY MACIE; Protocol Last Admin: 08/16/25 08:17 Dose: 7.5 mg Clonidine HCl (Clonidine Hcl 0.1 Mg Tablet) 0.1 mg PO TID PRN; Protocol PRN Reason: High BP & anxiety Last Admin: 08/16/25 16:43 Dose: 0.1 mg Fluoxetine HCl (Fluoxetine Hcl 20 Mg Capsule) 40 mg PO DAILY MACIE Last Admin: 08/16/25 08:16 Dose: 40 mg Hydroxyzine HCl (Hydroxyzine Hcl 25 Mg Tablet) 25 mg PO Q6H PRN PRN Reason: mild anxiety Last Admin: 08/15/25 20:36 Dose: 25 mg Losartan Potassium (Losartan Potassium 50 Mg Tablet) 50 mg PO BID MACIE; Protocol Last Admin: 08/16/25 08:17 Dose: 50 mg Magnesium Hydroxide (Milk Of Magnesia 30 Ml Oral.Susp) 30 ml PO DAILY PRN PRN Reason: Constipation Melatonin (Melatonin 3 Mg Tablet) 6 mg PO BEDTIME PRN PRN Reason: Insomnia Last Admin: 08/15/25 22:08 Dose: 6 mg Nicotine (Nicotine 21 Mg Patch.Td24) 21 mg TRANSDERMA DAILY PRN PRN Reason: nicotine craving Nicotine Polacrilex (Nicotine Polacrilex 2 Mg Gum) 4 mg BUCCAL Q2H PRN PRN Reason: Nicotine Cravings Prazosin HCl (Prazosin Hcl 1 Mg Capsule) 2 mg PO BEDTIME MACIE; Protocol Last Admin: 08/15/25 20:30 Dose: 2 mg Risperidone (Risperidone 0.5 Mg Tablet) 0.5 mg PO TID PRN PRN Reason: agitation Risperidone (Risperidone 2 Mg Tablet) 2 mg PO BEDTIME MACIE Last Admin: 08/15/25 20:31 Dose: 2 mg Risperidone (Risperidone 1 Mg Tablet) 1 mg PO DAILY MACIE Last Admin: 08/16/25 08:17 Dose: 1 mg Thiamine HCl (Thiamine Hcl 100 Mg Tablet) 100 mg PO DAILY MACIE Last Admin: 08/16/25 08:17 Dose: 100 mg Trazodone HCl (Trazodone Hcl 50 Mg Tablet) 50 mg PO BEDTIME MACIE Last Admin: 08/15/25 20:31 Dose: 50 mg Allergies Allergies Allergy/AdvReac Type Severity Reaction Status Date / Time lisinopril Allergy Abdominal Verified 08/09/25 15:20 Pain Assessment & Plan Assessment & Plan (1) Depressive disorder: Status: Acute Code(s): F32.A - Depression, unspecified (2) Alcohol use disorder: Status: Acute Code(s): F10.90 - Alcohol use, unspecified, uncomplicated (3) Cocaine use disorder in remission: Status: Acute Code(s): F14.91 - Cocaine use, unspecified, in remission (4) HTN (hypertension): Status: Acute Code(s): I10 - Essential (primary) hypertension Plan Mr. Deng is a 50 yo black M with h/o anxiety, insomnia, alcohol use d/o, cocaine use d/o in remission, and HTN who presented to [facility] to requesting to speak w/ Crisis after having an anxiety attack. He reportedly endorsed SI at the [facility] ED and HI towards his family in general after being kicked out and having no place to go. BAL on arrival to the ED was 243. Pt was transferred to [facility] for safety and stabilization after undergoing medical clearance. Plan: Admitted to [facility] for safety and stabilization 15 min safety checks Continue current home meds psych meds include fluoxetine 40 mg- has helped with anxiety overall, prazosin 2 mg-helps w/ insomnia, trazodone 100 mg qhs- helps with insomnia but a/w vivid dreams Pt is agreeable w/ plan to trial risperidone off-label for anxiety/impulsivity/anger. Will start with .5 mg tonight and add 0.5 mg bid prn CIWA + prn lorazepam for sx of ETOH w/d 08/10: Med correction - pt was started on fluoxetine 20 mg since he hadn't been taking fluoxetine consistently. He had been taking olanzapine 5 mg qhs at home and dose was decreased to 2.5 mg to x titrate to risperidone (0.5 mg last night). He has received 2 mg lorazeapam per CIWA today, currently denies sx of ETOH w/d. Received clonidine .1 mg for HTN today in addition to losartan 50 mg bid. Still hypertensive but improving. Mood has improved denies SI/violent ideation. -Communicated w/ hospitalist re: tx of HTN. She was in the process of meeting w/ pt and will adjust meds as needed. -Pt agreeable w/ plan to d/c olanzapine and increase risperidone to 1 mg starting tonight for off-label tx of mood lability/anxiety. 08/11: Mood has improved overall. Denies sx of w/d. Last received lorazepam yesterday. Will continue current psychotropic med regimen. Hospitalist added amlodipine 2.5 mg at hs for HTN yesterday. Received one time dose of 5 mg today due to ongoing HTN. Will receive 7.5 mg tomorrow. 08/12: Pt has not scored >4 on CIWA. Will d/c CIWA and prn lorazepam for ETOH w/d. HTN improving w/ amlodipine, increased this am to 7.5 mg. Pt is anxious about d/c planning and possibility that he'll have to go to a senior living. Denies active SI/violent ideation, AHVH. -Pt agreeable w/ plan to increase risperidone to 2 mg qhs to target anxiety, agitation, anger- improved overall. 08/13:Active on unit. social with peers. attending groups. Patient reports feeling a little anxious because I'm hoping to get a bed at the [facility] ; denies SI/HI/VH/AH. He rpeorts sleeping well last night. Continue tx plan. 08/14: continue tx plan. 08/15/25:Patient reports sleep is improving, same with appetite. Reports he has a good news today as his parents able to sell his truck and gets some money. Reported that mood still kind of up and down, anxious and depressed /10 which is improving. Patient shared that this is a very terrible year for him and he has been going through a lot. Be sectioned a couple of them for the safety concerns. Patient said that he is learning how to leave the past behind so that he can moving forward for the future. He hopes that he can get into the program somewhere in this area. Denies safety concerns, or hallucinations. We discussed with patient regarding Prozac which will be increased up to 40 mg to target anxiety and depression/PTSD symptoms. Also due to the mood unsteady- nursing reported the patient having couple outburst-mild over the weekends regarding food was sent wrong up here for him. Appeared to be anxious, depressed, with potential impulsive. Therefore we will increase the risperidone up to 3 total mg a day in divided dose. Risperidone 1mg in the AM and 2 mg at HS Prozac increased from 20 mg up to 40 mg start tomorrow depression/anxiety. Blood pressure appeared to be under control medications. 08/16: Mood has improved. Future oriented. Tolerated med changes made yesterday. Agreeable w/ plan to continue current med regimen. Referred to [facility]. Patient educated on: diagnosis, medication risk/benefits, substance abuse and therapeutic strategies Informed Consent: understands Reason for continued inpatient stay Substantial Risk for: med/psych decompensation Time Spent With Patient Time: Total time managing care of this patient today ____ minutes.
[2025-08-16 21:13] VITALS: BP 112/79; PULSE 81; RESP 16; TEMP 36.6; O2SAT 99
[2025-08-17 08:00] VITALS: BP 106/75; PULSE 89; RESP 14; TEMP 36.6; O2SAT 99
--- NOTE | 2025-08-17 10:45 | P.PNPSI_ITS ---
Subjective Subjective Date of Service: 08/17/25 Reason For Visit: Unspecified Depressive Disorder Interim History: Active on unit. social with peers. attending groups. future oriented. Patient reports doing well today; focused on going to substance abuse program. Patients stated, I'm really hoping I can get into the [facility] after here . He states he has been coloring for coping today. denies SI/HI/VH/AH. Continue tx plan. Medication Compliance: Yes Side effects from medications: No Attending Groups: Yes Mental Status Exam Mental Status Exam Patient Appearance: Well Grooomed Patient Orientation: Person, Place, Time and Situation Level of Consciousness: Awake and Alert Patient Behavior: Appropriate, Cooperative and Good Eye Contact Mood Description: Calm Affect Description: Calm Ability to Follow Directions: Good Speech Pattern: Clear Memory Description: Intact Hallucinations: None Delusions: Not Present Thought Process: Intact and Goal Oriented Thought Content: positive for Intact Diagnostics Vital Signs (24Hr): Vital Signs - 24 hr 08/16/25 16:43 08/16/25 21:13 08/17/25 08:00 Temperature 97.9 F 97.9 F Pulse Rate 81 89 Respiratory Rate 16 14 Blood Pressure 138/100 H 112/79 106/75 Pulse Oximetry 99 99 Oxygen Delivery Method Room Air Room Air BMI result Body Mass Index 25.0 Medications Medications Current Medications Acetaminophen (Acetaminophen 325 Mg Tablet) 650 mg PO Q6H PRN PRN Reason: Headache/Pain, Scale 1-10 Last Admin: 08/13/25 08:43 Dose: 650 mg Al Hydroxide/Mg Hydroxide (Magnesium Hydrox/Alum Hydrox 30 Ml Oral.Susp) 30 ml PO Q6H PRN PRN Reason: Heartburn/Nausea Allopurinol (Allopurinol 100 Mg Tablet) 100 mg PO DAILY [facility]IE Last Admin: 08/17/25 08:03 Dose: 100 mg Amlodipine Besylate (Amlodipine Besylate 2.5 Mg Tablet) 7.5 mg PO DAILY MACIE; Protocol Last Admin: 08/17/25 08:02 Dose: 7.5 mg Clonidine HCl (Clonidine Hcl 0.1 Mg Tablet) 0.1 mg PO TID PRN; Protocol PRN Reason: High BP & anxiety Last Admin: 08/16/25 16:43 Dose: 0.1 mg Fluoxetine HCl (Fluoxetine Hcl 20 Mg Capsule) 40 mg PO DAILY MACIE Last Admin: 08/17/25 08:02 Dose: 40 mg Hydroxyzine HCl (Hydroxyzine Hcl 25 Mg Tablet) 25 mg PO Q6H PRN PRN Reason: mild anxiety Last Admin: 08/17/25 04:45 Dose: 25 mg Losartan Potassium (Losartan Potassium 50 Mg Tablet) 50 mg PO BID MACIE; Protocol Last Admin: 08/17/25 08:03 Dose: 50 mg Magnesium Hydroxide (Milk Of Magnesia 30 Ml Oral.Susp) 30 ml PO DAILY PRN PRN Reason: Constipation Melatonin (Melatonin 3 Mg Tablet) 6 mg PO BEDTIME PRN PRN Reason: Insomnia Last Admin: 08/16/25 21:22 Dose: 6 mg Nicotine (Nicotine 21 Mg Patch.Td24) 21 mg TRANSDERMA DAILY PRN PRN Reason: nicotine craving Nicotine Polacrilex (Nicotine Polacrilex 2 Mg Gum) 4 mg BUCCAL Q2H PRN PRN Reason: Nicotine Cravings Prazosin HCl (Prazosin Hcl 1 Mg Capsule) 2 mg PO BEDTIME MACIE; Protocol Last Admin: 08/16/25 21:21 Dose: 2 mg Risperidone (Risperidone 0.5 Mg Tablet) 0.5 mg PO TID PRN PRN Reason: agitation Risperidone (Risperidone 2 Mg Tablet) 2 mg PO BEDTIME MACIE Last Admin: 08/16/25 21:21 Dose: 2 mg Risperidone (Risperidone 1 Mg Tablet) 1 mg PO DAILY MACIE Last Admin: 08/17/25 08:04 Dose: 1 mg Thiamine HCl (Thiamine Hcl 100 Mg Tablet) 100 mg PO DAILY MACIE Last Admin: 08/17/25 08:03 Dose: 100 mg Trazodone HCl (Trazodone Hcl 50 Mg Tablet) 50 mg PO BEDTIME [facility]IE Last Admin: 08/16/25 21:21 Dose: 50 mg Allergies Allergies Allergy/AdvReac Type Severity Reaction Status Date / Time lisinopril Allergy Abdominal Verified 08/09/25 15:20 Pain Assessment & Plan Assessment & Plan (1) Depressive disorder: Status: Acute Code(s): F32.A - Depression, unspecified (2) Alcohol use disorder: Status: Acute Code(s): F10.90 - Alcohol use, unspecified, uncomplicated (3) Cocaine use disorder in remission: Status: Acute Code(s): F14.91 - Cocaine use, unspecified, in remission (4) HTN (hypertension): Status: Acute Code(s): I10 - Essential (primary) hypertension Plan Mr. Deng is a 50 yo black M with h/o anxiety, insomnia, alcohol use d/o, cocaine use d/o in remission, and HTN who presented to [facility] to requesting to speak w/ Crisis after having an anxiety attack. He reportedly endorsed SI at the [facility] ED and HI towards his family in general after being kicked out and having no place to go. BAL on arrival to the ED was 243. Pt was transferred to [facility] for safety and stabilization after undergoing medical clearance. Plan: Admitted to [facility] for safety and stabilization 15 min safety checks Continue current home meds psych meds include fluoxetine 40 mg- has helped with anxiety overall, prazosin 2 mg-helps w/ insomnia, trazodone 100 mg qhs- helps with insomnia but a/w vivid dreams Pt is agreeable w/ plan to trial risperidone off-label for anxiety/impulsivity/anger. Will start with .5 mg tonight and add 0.5 mg bid prn CIWA + prn lorazepam for sx of ETOH w/d 08/10: Med correction - pt was started on fluoxetine 20 mg since he hadn't been taking fluoxetine consistently. He had been taking olanzapine 5 mg qhs at home and dose was decreased to 2.5 mg to x titrate to risperidone (0.5 mg last night). He has received 2 mg lorazeapam per CIWA today, currently denies sx of ETOH w/d. Received clonidine .1 mg for HTN today in addition to losartan 50 mg bid. Still hypertensive but improving. Mood has improved denies SI/violent ideation. -Communicated w/ hospitalist re: tx of HTN. She was in the process of meeting w/ pt and will adjust meds as needed. -Pt agreeable w/ plan to d/c olanzapine and increase risperidone to 1 mg starting tonight for off-label tx of mood lability/anxiety. 08/11: Mood has improved overall. Denies sx of w/d. Last received lorazepam yesterday. Will continue current psychotropic med regimen. Hospitalist added amlodipine 2.5 mg at hs for HTN yesterday. Received one time dose of 5 mg today due to ongoing HTN. Will receive 7.5 mg tomorrow. 08/12: Pt has not scored >4 on CIWA. Will d/c CIWA and prn lorazepam for ETOH w/d. HTN improving w/ amlodipine, increased this am to 7.5 mg. Pt is anxious about d/c planning and possibility that he'll have to go to a jail. Denies active SI/violent ideation, AHVH. -Pt agreeable w/ plan to increase risperidone to 2 mg qhs to target anxiety, agitation, anger- improved overall. 08/13:Active on unit. social with peers. attending groups. Patient reports feeling a little anxious because I'm hoping to get a bed at the [facility] ; denies SI/HI/VH/AH. He rpeorts sleeping well last night. Continue tx plan. 08/14: continue tx plan. 08/15/25:Patient reports sleep is improving, same with appetite. Reports he has a good news today as his parents able to sell his truck and gets some money. Reported that mood still kind of up and down, anxious and depressed 01/01 which is improving. Patient shared that this is a very terrible year for him and he has been going through a lot. Be sectioned a couple of them for the safety concerns. Patient said that he is learning how to leave the past behind so that he can moving forward for the future. He hopes that he can get into the program somewhere in this area. Denies safety concerns, or hallucinations. We discussed with patient regarding Prozac which will be increased up to 40 mg to target anxiety and depression/PTSD symptoms. Also due to the mood unsteady- nursing reported the patient having couple outburst-mild over the weekends regarding food was sent wrong up here for him. Appeared to be anxious, depressed, with potential impulsive. Therefore we will increase the risperidone up to 3 total mg a day in divided dose. Risperidone 1mg in the AM and 2 mg at HS Prozac increased from 20 mg up to 40 mg start tomorrow depression/anxiety. Blood pressure appeared to be under control medications. 08/16: Mood has improved. Future oriented. Tolerated med changes made yesterday. Agreeable w/ plan to continue current med regimen. Referred to [facility]. 08/17: Active on unit. social with peers. attending groups. future oriented. Patient reports doing well today; focused on going to substance abuse program. Patients stated, I'm really hoping I can get into the [facility] after here . He states he has been coloring for coping today. denies SI/HI/VH/AH. Continue tx plan. Patient educated on: diagnosis and medication risk/benefits Reason for continued inpatient stay Substantial Risk for: med/psych decompensation Time Spent With Patient Time: Total time managing care of this patient today _20___ minutes.
[2025-08-17 13:04] VITALS: BP 120/86
[2025-08-17 20:10] VITALS: BP 124/87; PULSE 79; RESP 16; TEMP 37.1; O2SAT 100
[2025-08-17 21:51] VITALS: BP 130/86
[2025-08-18 05:08] VITALS: BP 115/82
[2025-08-18 08:43] VITALS: BP 113/74; PULSE 84; RESP 16; TEMP 36.6; O2SAT 99
--- NOTE | 2025-08-18 10:12 | HO.PSYCHPN ---
Subjective Subjective Date of Service: 08/18/25 Reason For Visit: Unspecified Depressive Disorder Subjective Notes: Conditional Voluntary Interim History: Patient was seen and discussed in rounds today. Records and plans were reviewed. He has been stable, eating and sleeping adequately. Denies any side effects and is happy with his medications. Hoping to be moved to the [facility], pending an opening. He is social and active. No SI. No changes were made Review of Systems Review of Systems Yes all other systems are reviewed and are negative Mental Status Exam Mental Status Exam Patient Appearance: Well Grooomed Patient Orientation: Person, Place, Time and Situation Level of Consciousness: Awake and Alert Patient Behavior: Appropriate, Cooperative and Good Eye Contact Mood Description: Calm Affect Description: Calm Ability to Follow Directions: Good Speech Pattern: Clear Memory Description: Intact Hallucinations: None Delusions: Not Present Thought Process: Intact and Goal Oriented Thought Content: positive for Intact Diagnostics Vital Signs (24Hr): Vital Signs - 24 hr 08/17/25 13:04 08/17/25 20:10 08/17/25 21:51 Temperature 98.8 F Pulse Rate 79 Respiratory Rate 16 Blood Pressure 120/86 124/87 130/86 Pulse Oximetry 100 Oxygen Delivery Method Room Air 08/18/25 05:08 08/18/25 08:43 Temperature 97.9 F Pulse Rate 84 Respiratory Rate 16 Blood Pressure 115/82 113/74 Pulse Oximetry 99 Oxygen Delivery Method Room Air BMI result Body Mass Index 25.0 Medications Medications Current Medications Acetaminophen (Acetaminophen 325 Mg Tablet) 650 mg PO Q6H PRN PRN Reason: Headache/Pain, Scale 1-10 Last Admin: 08/18/25 09:08 Dose: 650 mg Al Hydroxide/Mg Hydroxide (Magnesium Hydrox/Alum Hydrox 30 Ml Oral.Susp) 30 ml PO Q6H PRN PRN Reason: Heartburn/Nausea Allopurinol (Allopurinol 100 Mg Tablet) 100 mg PO DAILY MACIE Last Admin: 08/18/25 08:44 Dose: 100 mg Amlodipine Besylate (Amlodipine Besylate 2.5 Mg Tablet) 7.5 mg PO DAILY MACIE; Protocol Last Admin: 08/18/25 08:45 Dose: 7.5 mg Clonidine HCl (Clonidine Hcl 0.1 Mg Tablet) 0.1 mg PO TID PRN; Protocol PRN Reason: High BP & anxiety Last Admin: 08/18/25 05:08 Dose: 0.1 mg Fluoxetine HCl (Fluoxetine Hcl 20 Mg Capsule) 40 mg PO DAILY [facility] Last Admin: 08/18/25 09:08 Dose: 40 mg Hydroxyzine HCl (Hydroxyzine Hcl 25 Mg Tablet) 25 mg PO Q6H PRN PRN Reason: mild anxiety Last Admin: 08/18/25 09:08 Dose: 25 mg Losartan Potassium (Losartan Potassium 50 Mg Tablet) 50 mg PO BID MACIE; Protocol Last Admin: 08/18/25 08:45 Dose: 50 mg Magnesium Hydroxide (Milk Of Magnesia 30 Ml Oral.Susp) 30 ml PO DAILY PRN PRN Reason: Constipation Melatonin (Melatonin 3 Mg Tablet) 6 mg PO BEDTIME PRN PRN Reason: Insomnia Last Admin: 08/17/25 21:50 Dose: 6 mg Nicotine (Nicotine 21 Mg Patch.Td24) 21 mg TRANSDERMA DAILY PRN PRN Reason: nicotine craving Nicotine Polacrilex (Nicotine Polacrilex 2 Mg Gum) 4 mg BUCCAL Q2H PRN PRN Reason: Nicotine Cravings Prazosin HCl (Prazosin Hcl 1 Mg Capsule) 2 mg PO BEDTIME MACIE; Protocol Last Admin: 08/17/25 21:51 Dose: 2 mg Risperidone (Risperidone 0.5 Mg Tablet) 0.5 mg PO TID PRN PRN Reason: agitation Risperidone (Risperidone 2 Mg Tablet) 2 mg PO BEDTIME [facility] Last Admin: 08/17/25 21:50 Dose: 2 mg Risperidone (Risperidone 1 Mg Tablet) 1 mg PO DAILY [facility] Last Admin: 08/18/25 08:44 Dose: 1 mg Thiamine HCl (Thiamine Hcl 100 Mg Tablet) 100 mg PO DAILY [facility] Last Admin: 08/18/25 08:45 Dose: 100 mg Trazodone HCl (Trazodone Hcl 50 Mg Tablet) 50 mg PO BEDTIME [facility] Last Admin: 08/17/25 21:50 Dose: 50 mg Allergies Allergies Allergy/AdvReac Type Severity Reaction Status Date / Time lisinopril Allergy Abdominal Verified 08/09/25 15:20 Pain Assessment & Plan Assessment & Plan (1) Depressive disorder: Status: Acute Code(s): F32.A - Depression, unspecified (2) Alcohol use disorder: Status: Acute Code(s): F10.90 - Alcohol use, unspecified, uncomplicated (3) Cocaine use disorder in remission: Status: Acute Code(s): F14.91 - Cocaine use, unspecified, in remission (4) HTN (hypertension): Status: Acute Code(s): I10 - Essential (primary) hypertension Plan Mr. Deng is a 50 yo black M with h/o anxiety, insomnia, alcohol use d/o, cocaine use d/o in remission, and HTN who presented to [facility] to requesting to speak w/ Crisis after having an anxiety attack. He reportedly endorsed SI at the [facility] ED and HI towards his family in general after being kicked out and having no place to go. BAL on arrival to the ED was 243. Pt was transferred to [facility] for safety and stabilization after undergoing medical clearance. Plan: Admitted to [facility] for safety and stabilization 15 min safety checks Continue current home meds psych meds include fluoxetine 40 mg- has helped with anxiety overall, prazosin 2 mg-helps w/ insomnia, trazodone 100 mg qhs- helps with insomnia but a/w vivid dreams Pt is agreeable w/ plan to trial risperidone off-label for anxiety/impulsivity/anger. Will start with .5 mg tonight and add 0.5 mg bid prn CIWA + prn lorazepam for sx of ETOH w/d 08/10: Med correction - pt was started on fluoxetine 20 mg since he hadn't been taking fluoxetine consistently. He had been taking olanzapine 5 mg qhs at home and dose was decreased to 2.5 mg to x titrate to risperidone (0.5 mg last night). He has received 2 mg lorazeapam per CIWA today, currently denies sx of ETOH w/d. Received clonidine .1 mg for HTN today in addition to losartan 50 mg bid. Still hypertensive but improving. Mood has improved denies SI/violent ideation. -Communicated w/ hospitalist re: tx of HTN. She was in the process of meeting w/ pt and will adjust meds as needed. -Pt agreeable w/ plan to d/c olanzapine and increase risperidone to 1 mg starting tonight for off-label tx of mood lability/anxiety. 08/11: Mood has improved overall. Denies sx of w/d. Last received lorazepam yesterday. Will continue current psychotropic med regimen. Hospitalist added amlodipine 2.5 mg at hs for HTN yesterday. Received one time dose of 5 mg today due to ongoing HTN. Will receive 7.5 mg tomorrow. 08/12: Pt has not scored >4 on CIWA. Will d/c CIWA and prn lorazepam for ETOH w/d. HTN improving w/ amlodipine, increased this am to 7.5 mg. Pt is anxious about d/c planning and possibility that he'll have to go to a [facility]. Denies active SI/violent ideation, AHVH. -Pt agreeable w/ plan to increase risperidone to 2 mg qhs to target anxiety, agitation, anger- improved overall. 08/13:Active on unit. social with peers. attending groups. Patient reports feeling a little anxious because I'm hoping to get a bed at the [facility] ; denies SI/HI/VH/AH. He rpeorts sleeping well last night. Continue tx plan. 08/14: continue tx plan. 08/15/25:Patient reports sleep is improving, same with appetite. Reports he has a good news today as his parents able to sell his truck and gets some money. Reported that mood still kind of up and down, anxious and depressed 01/01 which is improving. Patient shared that this is a very terrible year for him and he has been going through a lot. Be sectioned a couple of them for the safety concerns. Patient said that he is learning how to leave the past behind so that he can moving forward for the future. He hopes that he can get into the program somewhere in this area. Denies safety concerns, or hallucinations. We discussed with patient regarding Prozac which will be increased up to 40 mg to target anxiety and depression/PTSD symptoms. Also due to the mood unsteady-nursing reported the patient having couple outburst-mild over the weekends regarding food was sent wrong up here for him. Appeared to be anxious, depressed, with potential impulsive. Therefore we will increase the risperidone up to 3 total mg a day in divided dose. Risperidone 1mg in the AM and 2 mg at HS Prozac increased from 20 mg up to 40 mg start tomorrow depression/anxiety. Blood pressure appeared to be under control medications. 08/16: Mood has improved. Future oriented. Tolerated med changes made yesterday. Agreeable w/ plan to continue current med regimen. Referred to [facility]. 08/17: Active on unit. social with peers. attending groups. future oriented. Patient reports doing well today; focused on going to substance abuse program. Patients stated, I'm really hoping I can get into the [facility] after here . He states he has been coloring for coping today. denies SI/HI/VH/AH. Continue tx plan. 08/18: Continue current regimen and plans. Reason for continued inpatient stay Substantial Risk for: med/psych decompensation Time Spent With Patient Time: Total time managing care of this patient today ____ minutes.
[2025-08-18 10:42] VITALS: BMI 26.0
[2025-08-18 18:14] VITALS: BP 128/84; PULSE 88
[2025-08-18 19:25] VITALS: BP 140/81; PULSE 86; RESP 17; TEMP 38.6; O2SAT 100
[2025-08-18 20:15] VITALS: TEMP 36.6
[2025-08-18 22:33] VITALS: BP 119/94
[2025-08-19 04:17] VITALS: BP 102/79
[2025-08-19 08:00] VITALS: BP 113/81; PULSE 84; RESP 16; TEMP 36.3; O2SAT 100
[2025-08-19 09:13] VITALS: BP 113/81
[2025-08-19 09:14] VITALS: BP 113/81
[2025-08-19 16:37] VITALS: BP 116/88; PULSE 88
[2025-08-19 20:00] VITALS: BP 132/82; PULSE 85; RESP 16; TEMP 36.6; O2SAT 96
--- NOTE | 2025-08-19 20:56 | HO.PSYCHPN ---
Subjective Subjective Date of Service: 08/19/25 Reason For Visit: Unspecified Depressive Disorder Subjective Notes: Blue Warning and Conditional Voluntary Healthcare Proxy: No Guardianship: No Medical Problems Affecting Mental Status: No Interim History: Medical record and nursing notes reviewed; case discussed during rounds with team/nursing staff, and met with patient for supportive therapy/psychoeducation, as well as medication management. Patient got phone interview wit [facility] at 1100 which patient was accepted. Will be discharged on Friday when bed is available. Patient does not show if he is happy as he says he does not want to put too much hope in- only when he is for sure until he lives as the past taught him that way so just in case thing does not go right direction, he does not feel too disappointed. Denies SI/SIB/HI/AVH. Mood is improving and know when to ask for PRN when he is anxious or irritable. Patient was observed irritable x1 toward one of the very intrusive and psychotic patient but directable. He is able to walk away. Complaint with meds, no side effects. Report Risperidone is helpful with his impulsive mood. Medication Compliance: Yes Side effects from medications: No Attending Groups: Yes Review of Systems Acute medical concerns: No Medical Review of Systems: unchanged Review of Systems Review of Systems Patient has no acute medical complaints at this time All other systems are reviewed and are negative Yes all other systems are reviewed and are negative Mental Status Exam Mental Status Exam Narrative: Appearance: Casual. Grooming/hygiene and eye contact wnl Attitude: Cooperative Speech: Fluent and wnl in regard to volume, tone, prosody Motor activity: Calm mostly, Steady gait. No dyskinesias Mood: improving Affect: bright Thought process: Goal directed, no evidence of formal thought disorder Thought content: no active SI. Denies violent ideation. Less overwhelmed and future oriented/focus Perception: Denies AH/VH and does not appear to respond to internal stimuli Alert/oriented in all spheres Cognition grossly intact Insight: intact Judgment: intact Diagnostics Vital Signs (24Hr): Vital Signs - 24 hr 08/18/25 22:33 08/19/25 04:17 08/19/25 08:00 Temperature 97.4 F Pulse Rate 84 Respiratory Rate 16 Blood Pressure 119/94 H 102/79 113/81 Pulse Oximetry 100 Oxygen Delivery Method Room Air 08/19/25 09:13 08/19/25 09:14 08/19/25 16:37 Temperature Pulse Rate 88 Respiratory Rate Blood Pressure 113/81 113/81 116/88 Pulse Oximetry Oxygen Delivery Method BMI result Body Mass Index 26.0 Medications Medications Current Medications Acetaminophen (Acetaminophen 325 Mg Tablet) 650 mg PO Q6H PRN PRN Reason: Headache/Pain, Scale 1-10 Last Admin: 08/18/25 22:33 Dose: 650 mg Al Hydroxide/Mg Hydroxide (Magnesium Hydrox/Alum Hydrox 30 Ml Oral.Susp) 30 ml PO Q6H PRN PRN Reason: Heartburn/Nausea Allopurinol (Allopurinol 100 Mg Tablet) 100 mg PO DAILY [facility] Last Admin: 08/19/25 09:13 Dose: 100 mg Amlodipine Besylate (Amlodipine Besylate 2.5 Mg Tablet) 7.5 mg PO DAILY [facility]; Protocol Last Admin: 08/19/25 09:14 Dose: 7.5 mg Clonidine HCl (Clonidine Hcl 0.1 Mg Tablet) 0.1 mg PO TID PRN; Protocol PRN Reason: High BP & anxiety Last Admin: 08/19/25 16:39 Dose: 0.1 mg Fluoxetine HCl (Fluoxetine Hcl 20 Mg Capsule) 40 mg PO DAILY [facility] Last Admin: 08/19/25 09:13 Dose: 40 mg Hydroxyzine HCl (Hydroxyzine Hcl 25 Mg Tablet) 25 mg PO Q6H PRN PRN Reason: mild anxiety Last Admin: 08/19/25 16:39 Dose: 25 mg Losartan Potassium (Losartan Potassium 50 Mg Tablet) 50 mg PO BID [facility]; Protocol Last Admin: 08/19/25 20:36 Dose: 50 mg Magnesium Hydroxide (Milk Of Magnesia 30 Ml Oral.Susp) 30 ml PO DAILY PRN PRN Reason: Constipation Melatonin (Melatonin 3 Mg Tablet) 6 mg PO BEDTIME PRN PRN Reason: Insomnia Last Admin: 08/18/25 22:32 Dose: 6 mg Nicotine (Nicotine 21 Mg Patch.Td24) 21 mg TRANSDERMA DAILY PRN PRN Reason: nicotine craving Nicotine Polacrilex (Nicotine Polacrilex 2 Mg Gum) 4 mg BUCCAL Q2H PRN PRN Reason: Nicotine Cravings Prazosin HCl (Prazosin Hcl 1 Mg Capsule) 2 mg PO BEDTIME [facility]; Protocol Last Admin: 08/19/25 20:36 Dose: 2 mg Risperidone (Risperidone 0.5 Mg Tablet) 0.5 mg PO TID PRN PRN Reason: agitation Risperidone (Risperidone 2 Mg Tablet) 2 mg PO BEDTIME [facility] Last Admin: 08/19/25 20:36 Dose: 2 mg Risperidone (Risperidone 1 Mg Tablet) 1 mg PO DAILY [facility] Last Admin: 08/19/25 09:13 Dose: 1 mg Thiamine HCl (Thiamine Hcl 100 Mg Tablet) 100 mg PO DAILY [facility] Last Admin: 08/19/25 09:13 Dose: 100 mg Trazodone HCl (Trazodone Hcl 50 Mg Tablet) 50 mg PO BEDTIME [facility] Last Admin: 08/18/25 22:32 Dose: 50 mg Allergies Allergies Allergy/AdvReac Type Severity Reaction Status Date / Time lisinopril Allergy Abdominal Verified 08/09/25 15:20 Pain Assessment & Plan Assessment & Plan (1) Depressive disorder: Status: Acute Code(s): F32.A - Depression, unspecified (2) Alcohol use disorder: Status: Acute Code(s): F10.90 - Alcohol use, unspecified, uncomplicated (3) Cocaine use disorder in remission: Status: Acute Code(s): F14.91 - Cocaine use, unspecified, in remission (4) HTN (hypertension): Status: Acute Code(s): I10 - Essential (primary) hypertension Plan Mr. Deng is a 50 yo black M with h/o anxiety, insomnia, alcohol use d/o, cocaine use d/o in remission, and HTN who presented to [facility] to requesting to speak w/ Crisis after having an anxiety attack. He reportedly endorsed SI at the [facility] ED and HI towards his family in general after being kicked out and having no place to go. BAL on arrival to the ED was 243. Pt was transferred to [facility] for safety and stabilization after undergoing medical clearance. Plan: Admitted to [facility] for safety and stabilization 15 min safety checks Continue current home meds psych meds include fluoxetine 40 mg- has helped with anxiety overall, prazosin 2 mg-helps w/ insomnia, trazodone 100 mg qhs- helps with insomnia but a/w vivid dreams Pt is agreeable w/ plan to trial risperidone off-label for anxiety/impulsivity/anger. Will start with .5 mg tonight and add 0.5 mg bid prn CIWA + prn lorazepam for sx of ETOH w/d 08/10: Med correction - pt was started on fluoxetine 20 mg since he hadn't been taking fluoxetine consistently. He had been taking olanzapine 5 mg qhs at home and dose was decreased to 2.5 mg to x titrate to risperidone (0.5 mg last night). He has received 2 mg lorazeapam per CIWA today, currently denies sx of ETOH w/d. Received clonidine .1 mg for HTN today in addition to losartan 50 mg bid. Still hypertensive but improving. Mood has improved denies SI/violent ideation. -Communicated w/ hospitalist re: tx of HTN. She was in the process of meeting w/ pt and will adjust meds as needed. -Pt agreeable w/ plan to d/c olanzapine and increase risperidone to 1 mg starting tonight for off-label tx of mood lability/anxiety. 08/11: Mood has improved overall. Denies sx of w/d. Last received lorazepam yesterday. Will continue current psychotropic med regimen. Hospitalist added amlodipine 2.5 mg at hs for HTN yesterday. Received one time dose of 5 mg today due to ongoing HTN. Will receive 7.5 mg tomorrow. 08/12: Pt has not scored >4 on CIWA. Will d/c CIWA and prn lorazepam for ETOH w/d. HTN improving w/ amlodipine, increased this am to 7.5 mg. Pt is anxious about d/c planning and possibility that he'll have to go to a alf. Denies active SI/violent ideation, AHVH. -Pt agreeable w/ plan to increase risperidone to 2 mg qhs to target anxiety, agitation, anger- improved overall. 08/13:Active on unit. social with peers. attending groups. Patient reports feeling a little anxious because I'm hoping to get a bed at the [facility] ; denies SI/HI/VH/AH. He rpeorts sleeping well last night. Continue tx plan. 08/14: continue tx plan. 08/15/25:Patient reports sleep is improving, same with appetite. Reports he has a good news today as his parents able to sell his truck and gets some money. Reported that mood still kind of up and down, anxious and depressed 5/10 which is improving. Patient shared that this is a very terrible year for him and he has been going through a lot. Be sectioned a couple of them for the safety concerns. Patient said that he is learning how to leave the past behind so that he can moving forward for the future. He hopes that he can get into the program somewhere in this area. Denies safety concerns, or hallucinations. We discussed with patient regarding Prozac which will be increased up to 40 mg to target anxiety and depression/PTSD symptoms. Also due to the mood unsteady-nursing reported the patient having couple outburst-mild over the weekends regarding food was sent wrong up here for him. Appeared to be anxious, depressed, with potential impulsive. Therefore we will increase the risperidone up to 3 total mg a day in divided dose. Risperidone 1mg in the AM and 2 mg at HS Prozac increased from 20 mg up to 40 mg start tomorrow depression/anxiety. Blood pressure appeared to be under control medications. 08/16: Mood has improved. Future oriented. Tolerated med changes made yesterday. Agreeable w/ plan to continue current med regimen. Referred to [facility]. 08/17: Active on unit. social with peers. attending groups. future oriented. Patient reports doing well today; focused on going to substance abuse program. Patients stated, I'm really hoping I can get into the [facility] after here . He states he has been coloring for coping today. denies SI/HI/VH/AH. Continue tx plan. 08/18: Continue current regimen and plans. 08/19/25: Patient got phone interview wit [facility] at 1100 which patient was accepted. Will be discharged on Friday when bed is available. Patient does not show if he is happy as he says he does not want to put too much hope in- only when he is for sure until he lives as the past taught him that way so just in case thing does not go right direction, he does not feel too disappointed. Denies SI/SIB/HI/AVH. Mood is improving and know when to ask for PRN when he is anxious or irritable. Patient was observed irritable x1 toward one of the very intrusive and psychotic patient but directable. He is able to walk away. Complaint with meds, no side effects. Report Risperidone is helpful with his impulsive mood. Patient educated on: diagnosis, medication risk/benefits, substance abuse and therapeutic strategies Informed Consent: understands and further education needed Reason for continued inpatient stay Substantial Risk for: med/psych decompensation Time Spent With Patient Time: Total time managing care of this patient today ____ minutes.
[2025-08-20] VITALS (8 sets, daily range): BP systolic 110–135; BP diastolic 72–88; PULSE 77–93; RESP 16; TEMP 36.7–36.8; O2SAT 99–100
--- NOTE | 2025-08-20 15:53 | P.PNPSI_ITS ---
Subjective Subjective Date of Service: 08/20/25 Reason For Visit: Unspecified Depressive Disorder Subjective Notes: Conditional Voluntary Healthcare Proxy: No Guardianship: No Medical Problems Affecting Mental Status: No Interim History: Medical record and nursing notes reviewed; case discussed during rounds with team/nursing staff, and met with patient for supportive therapy/psychoeducation, as well as medication management. Patient is visible, attended groups, compliant with meds. No side effects and slept for 6 hours but report he always up at 0400. Request to have Trazodone increased to see if he can sleep better. Patient reports that he was triggered by a male peer a couple of times yesterday. Rommate moved to new room. Denies SI/SIB/HI/AVH. Medication Compliance: Yes Side effects from medications: No Attending Groups: Yes Review of Systems Acute medical concerns: No Medical Review of Systems: unchanged Review of Systems Review of Systems Constitutional: Denies fatigue and Denies fever(s) Cardiovascular: Denies chest pain and Denies dyspnea Respiratory: Denies dyspnea Gastrointestinal: Denies abdominal pain Psychiatric: denies suicidal ideation Endocrine: Denies fatigue Yes all other systems are reviewed and are negative Mental Status Exam Mental Status Exam Narrative: Appearance: Casual. Grooming/hygiene and eye contact wnl Attitude: Cooperative Speech: Fluent and wnl in regard to volume, tone, prosody Motor activity: Calm mostly, Steady gait. No dyskinesias Mood: improving Affect: bright Thought process: Goal directed, no evidence of formal thought disorder Thought content: Denies SI. Denies violent ideation. future oriented/focus Perception: Denies AH/VH and does not appear to respond to internal stimuli Alert/oriented in all spheres Cognition grossly intact Insight: intact Judgment: intact Diagnostics Vital Signs (24Hr): Vital Signs - 24 hr 08/19/25 16:37 08/19/25 20:00 08/20/25 04:22 Temperature 97.9 F Pulse Rate 88 85 Respiratory Rate 16 Blood Pressure 116/88 132/82 118/88 Pulse Oximetry 96 Oxygen Delivery Method Room Air 08/20/25 08:00 08/20/25 09:45 08/20/25 09:46 Temperature 98.1 F Pulse Rate 77 Respiratory Rate 16 Blood Pressure 110/81 126/76 126/76 Pulse Oximetry 99 Oxygen Delivery Method Room Air BMI result Body Mass Index 26.0 Medications Medications Current Medications Acetaminophen (Acetaminophen 325 Mg Tablet) 650 mg PO Q6H PRN PRN Reason: Headache/Pain, Scale 1-10 Last Admin: 08/18/25 22:33 Dose: 650 mg Al Hydroxide/Mg Hydroxide (Magnesium Hydrox/Alum Hydrox 30 Ml Oral.Susp) 30 ml PO Q6H PRN PRN Reason: Heartburn/Nausea Allopurinol (Allopurinol 100 Mg Tablet) 100 mg PO DAILY [facility] Last Admin: 08/20/25 09:47 Dose: 100 mg Amlodipine Besylate (Amlodipine Besylate 2.5 Mg Tablet) 7.5 mg PO DAILY [facility]; Protocol Last Admin: 08/20/25 09:46 Dose: 7.5 mg Clonidine HCl (Clonidine Hcl 0.1 Mg Tablet) 0.1 mg PO TID PRN; Protocol PRN Reason: High BP & anxiety Last Admin: 08/20/25 04:22 Dose: 0.1 mg Fluoxetine HCl (Fluoxetine Hcl 20 Mg Capsule) 40 mg PO DAILY [facility] Last Admin: 08/20/25 09:46 Dose: 40 mg Hydrocortisone (Hydrocortisone 1 % Cream 28.35 Gm Tube) 1 appl TOPICAL BID [facility]; Protocol Hydroxyzine HCl (Hydroxyzine Hcl 25 Mg Tablet) 25 mg PO Q6H PRN PRN Reason: mild anxiety Last Admin: 08/19/25 16:39 Dose: 25 mg Losartan Potassium (Losartan Potassium 50 Mg Tablet) 50 mg PO BID [facility]; Protocol Last Admin: 08/20/25 09:45 Dose: 50 mg Magnesium Hydroxide (Milk Of Magnesia 30 Ml Oral.Susp) 30 ml PO DAILY PRN PRN Reason: Constipation Melatonin (Melatonin 3 Mg Tablet) 6 mg PO BEDTIME PRN PRN Reason: Insomnia Last Admin: 08/19/25 22:16 Dose: 6 mg Nicotine (Nicotine 21 Mg Patch.Td24) 21 mg TRANSDERMA DAILY PRN PRN Reason: nicotine craving Nicotine Polacrilex (Nicotine Polacrilex 2 Mg Gum) 4 mg BUCCAL Q2H PRN PRN Reason: Nicotine Cravings Prazosin HCl (Prazosin Hcl 1 Mg Capsule) 2 mg PO BEDTIME [facility]; Protocol Last Admin: 08/19/25 20:36 Dose: 2 mg Risperidone (Risperidone 0.5 Mg Tablet) 0.5 mg PO TID PRN PRN Reason: agitation Risperidone (Risperidone 2 Mg Tablet) 2 mg PO BEDTIME [facility] Last Admin: 08/19/25 20:36 Dose: 2 mg Risperidone (Risperidone 1 Mg Tablet) 1 mg PO DAILY [facility] Last Admin: 08/20/25 09:46 Dose: 1 mg Thiamine HCl (Thiamine Hcl 100 Mg Tablet) 100 mg PO DAILY [facility] Last Admin: 08/20/25 09:46 Dose: 100 mg Trazodone HCl (Trazodone Hcl 100 Mg Tablet) 100 mg PO BEDTIME [facility] Allergies Allergies Allergy/AdvReac Type Severity Reaction Status Date / Time lisinopril Allergy Abdominal Verified 08/09/25 15:20 Pain Assessment & Plan Assessment & Plan (1) Depressive disorder: Status: Acute Code(s): F32.A - Depression, unspecified (2) Alcohol use disorder: Status: Acute Code(s): F10.90 - Alcohol use, unspecified, uncomplicated (3) Cocaine use disorder in remission: Status: Acute Code(s): F14.91 - Cocaine use, unspecified, in remission (4) HTN (hypertension): Status: Acute Code(s): I10 - Essential (primary) hypertension Plan Mr. Deng is a 50 yo black M with h/o anxiety, insomnia, alcohol use d/o, cocaine use d/o in remission, and HTN who presented to [facility] to requesting to speak w/ Crisis after having an anxiety attack. He reportedly endorsed SI at the [facility] ED and HI towards his family in general after being kicked out and having no place to go. BAL on arrival to the ED was 243. Pt was transferred to [facility] for safety and stabilization after undergoing medical clearance. Plan: Admitted to [facility] for safety and stabilization 15 min safety checks Continue current home meds psych meds include fluoxetine 40 mg- has helped with anxiety overall, prazosin 2 mg-helps w/ insomnia, trazodone 100 mg qhs- helps with insomnia but a/w vivid dreams Pt is agreeable w/ plan to trial risperidone off-label for anxiety/impulsivity/anger. Will start with .5 mg tonight and add 0.5 mg bid prn CIWA + prn lorazepam for sx of ETOH w/d 08/10: Med correction - pt was started on fluoxetine 20 mg since he hadn't been taking fluoxetine consistently. He had been taking olanzapine 5 mg qhs at home and dose was decreased to 2.5 mg to x titrate to risperidone (0.5 mg last night). He has received 2 mg lorazeapam per CIWA today, currently denies sx of ETOH w/d. Received clonidine .1 mg for HTN today in addition to losartan 50 mg bid. Still hypertensive but improving. Mood has improved denies SI/violent ideation. -Communicated w/ hospitalist re: tx of HTN. She was in the process of meeting w/ pt and will adjust meds as needed. -Pt agreeable w/ plan to d/c olanzapine and increase risperidone to 1 mg starting tonight for off-label tx of mood lability/anxiety. 08/11: Mood has improved overall. Denies sx of w/d. Last received lorazepam yesterday. Will continue current psychotropic med regimen. Hospitalist added amlodipine 2.5 mg at hs for HTN yesterday. Received one time dose of 5 mg today due to ongoing HTN. Will receive 7.5 mg tomorrow. 08/12: Pt has not scored >4 on CIWA. Will d/c CIWA and prn lorazepam for ETOH w/d. HTN improving w/ amlodipine, increased this am to 7.5 mg. Pt is anxious about d/c planning and possibility that he'll have to go to a nursing home. Denies active SI/violent ideation, AHVH. -Pt agreeable w/ plan to increase risperidone to 2 mg qhs to target anxiety, agitation, anger- improved overall. 08/13:Active on unit. social with peers. attending groups. Patient reports feeling a little anxious because I'm hoping to get a bed at the [facility] ; denies SI/HI/VH/AH. He rpeorts sleeping well last night. Continue tx plan. 08/14: continue tx plan. 08/15/25:Patient reports sleep is improving, same with appetite. Reports he has a good news today as his parents able to sell his truck and gets some money. Re ported that mood still kind of up and down, anxious and depressed 01/01 which is improving. Patient shared that this is a very terrible year for him and he has been going through a lot. Be sectioned a couple of them for the safety concerns. Patient said that he is learning how to leave the past behind so that he can moving forward for the future. He hopes that he can get into the program somewhere in this area. Denies safety concerns, or hallucinations. We discussed with patient regarding Prozac which will be increased up to 40 mg to target anxiety and depression/PTSD symptoms. Also due to the mood unsteady- nursing reported the patient having couple outburst-mild over the weekends regarding food was sent wrong up here for him. Appeared to be anxious, depressed, with potential impulsive. Therefore we will increase the risperidone up to 3 total mg a day in divided dose. Risperidone 1mg in the AM and 2 mg at HS Prozac increased from 20 mg up to 40 mg start tomorrow depression/anxiety. Blood pressure appeared to be under control medications. 08/16: Mood has improved. Future oriented. Tolerated med changes made yesterday. Agreeable w/ plan to continue current med regimen. Referred to [facility]. 08/17: Active on unit. social with peers. attending groups. future oriented. Patient reports doing well today; focused on going to substance abuse program. Patients stated, I'm really hoping I can get into the [facility] after here . He states he has been coloring for coping today. denies SI/HI/VH/AH. Continue tx plan. 08/18: Continue current regimen and plans. 08/19/25: Patient got phone interview wit [facility] at 1100 which patient was accepted. Will be discharged on Friday when bed is available. Patient does not show if he is happy as he says he does not want to put too much hope in- only when he is for sure until he lives as the past taught him that way so just in case thing does not go right direction, he does not feel too disappointed. Denies SI/SIB/HI/AVH. Mood is improving and know when to ask for PRN when he is anxious or irritable. Patient was observed irritable x1 toward one of the very intrusive and psychotic patient but directable. He is able to walk away. Complaint with meds, no side effects. Report Risperidone is helpful with his impulsive mood. 08/20/25: Patient is visible, attended groups, compliant with meds. No side effects and slept for 6 hours but report he always up at 0400. Request to have Trazodone increased to see if he can sleep better. Patient reports that he was triggered by a male peer a couple of times yesterday. Rommate moved to new room. Denies SI/SIB/HI/AVH. Increase trazodone up to 100mg at HS. Patient educated on: diagnosis, medication risk/benefits and therapeutic strat egies Informed Consent: understands and further education needed Reason for continued inpatient stay Substantial Risk for: med/psych decompensation Time Spent With Patient Time: Total time managing care of this patient today ____ minutes.
[2025-08-20] MEDS: Hydrocortisone 1 % Cream 28.35 GM TUBE 1 APPL TOPICAL ×2 (16:45→22:19)
[2025-08-21 08:00] VITALS: BP 117/89; PULSE 87; RESP 14; TEMP 36.5; O2SAT 99
[2025-08-21 12:41] VITALS: BP 121/88
--- NOTE | 2025-08-21 18:14 | HO.PSYCHPN ---
Subjective Subjective Date of Service: 08/21/25 Reason For Visit: Unspecified Depressive Disorder Subjective Notes: Conditional Voluntary Healthcare Proxy: No Guardianship: No Medical Problems Affecting Mental Status: No Interim History: Medical record and nursing notes reviewed; case discussed during rounds with team/nursing staff, and met with patient for supportive therapy/psychoeducation, as well as medication management. Patient was triggered by peers, unit acuity which affects him and other peers. He took PRN and was in room in the afternoon yesterday. Patient report future focus and moving on to a new chapter of his life as he is leaving/discharging to [facility] tomorrow. No SI/SIB/HI/AVH. Slept for 5 hours last night but also napped early of the day. No med changes. Medication Compliance: Yes Side effects from medications: No Attending Groups: Yes Review of Systems Acute medical concerns: No Medical Review of Systems: unchanged Review of Systems Review of Systems Constitutional: Denies fatigue and Denies fever(s) Cardiovascular: Denies chest pain and Denies dyspnea Respiratory: Denies dyspnea Gastrointestinal: Denies abdominal pain Psychiatric: denies suicidal ideation Endocrine: Denies fatigue Yes all other systems are reviewed and are negative Mental Status Exam Mental Status Exam Narrative: Appearance: Casual. Grooming/hygiene and eye contact wnl Attitude: Cooperative Speech: Fluent and wnl in regard to volume, tone, prosody Motor activity: Calm mostly, Steady gait. No dyskinesias Mood: improving Affect: bright Thought process: Goal directed, no evidence of formal thought disorder Thought content: Denies SI. Denies violent ideation. future oriented/focus Perception: Denies AH/VH and does not appear to respond to internal stimuli Alert/oriented in all spheres Cognition grossly intact Insight: intact Judgment: intact Diagnostics Vital Signs (24Hr): Vital Signs - 24 hr 08/20/25 20:00 08/20/25 22:12 08/20/25 22:15 Temperature 98.2 F Pulse Rate 93 Respiratory Rate 16 Blood Pressure 135/72 130/75 130/75 Pulse Oximetry 100 Oxygen Delivery Method Room Air 08/21/25 08:00 08/21/25 12:41 Temperature 97.7 F Pulse Rate 87 Respiratory Rate 14 Blood Pressure 117/89 121/88 Pulse Oximetry 99 Oxygen Delivery Method Room Air BMI result Body Mass Index 26.0 Medications Medications Current Medications Acetaminophen (Acetaminophen 325 Mg Tablet) 650 mg PO Q6H PRN PRN Reason: Headache/Pain, Scale 1-10 Last Admin: 08/18/25 22:33 Dose: 650 mg Al Hydroxide/Mg Hydroxide (Magnesium Hydrox/Alum Hydrox 30 Ml Oral.Susp) 30 ml PO Q6H PRN PRN Reason: Heartburn/Nausea Allopurinol (Allopurinol 100 Mg Tablet) 100 mg PO DAILY MACIE Last Admin: 08/21/25 08:49 Dose: 100 mg Amlodipine Besylate (Amlodipine Besylate 2.5 Mg Tablet) 7.5 mg PO DAILY MACIE; Protocol Last Admin: 08/21/25 08:48 Dose: 7.5 mg Clonidine HCl (Clonidine Hcl 0.1 Mg Tablet) 0.1 mg PO TID PRN; Protocol PRN Reason: High BP & anxiety Last Admin: 08/21/25 12:41 Dose: 0.1 mg Fluoxetine HCl (Fluoxetine Hcl 20 Mg Capsule) 40 mg PO DAILY MACIE Last Admin: 08/21/25 08:49 Dose: 40 mg Hydrocortisone (Hydrocortisone 1 % Cream 28.35 Gm Tube) 1 appl TOPICAL BID MACIE; Protocol Last Admin: 08/21/25 12:23 Dose: Not Given Hydroxyzine HCl (Hydroxyzine Hcl 25 Mg Tablet) 25 mg PO Q6H PRN PRN Reason: mild anxiety Last Admin: 08/21/25 12:41 Dose: 25 mg Losartan Potassium (Losartan Potassium 50 Mg Tablet) 50 mg PO BID MACIE; Protocol Last Admin: 08/21/25 08:49 Dose: 50 mg Magnesium Hydroxide (Milk Of Magnesia 30 Ml Oral.Susp) 30 ml PO DAILY PRN PRN Reason: Constipation Melatonin (Melatonin 3 Mg Tablet) 6 mg PO BEDTIME PRN PRN Reason: Insomnia Last Admin: 08/20/25 22:15 Dose: 6 mg Nicotine (Nicotine 21 Mg Patch.Td24) 21 mg TRANSDERMA DAILY PRN PRN Reason: nicotine craving Nicotine Polacrilex (Nicotine Polacrilex 2 Mg Gum) 4 mg BUCCAL Q2H PRN PRN Reason: Nicotine Cravings Prazosin HCl (Prazosin Hcl 1 Mg Capsule) 2 mg PO BEDTIME MACIE; Protocol Last Admin: 08/20/25 22:12 Dose: 2 mg Risperidone (Risperidone 0.5 Mg Tablet) 0.5 mg PO TID PRN PRN Reason: agitation Risperidone (Risperidone 2 Mg Tablet) 2 mg PO BEDTIME MACIE Last Admin: 12/27/25 22:14 Dose: 2 mg Risperidone (Risperidone 1 Mg Tablet) 1 mg PO DAILY [facility] Last Admin: 08/21/25 08:48 Dose: 1 mg Thiamine HCl (Thiamine Hcl 100 Mg Tablet) 100 mg PO DAILY [facility] Last Admin: 08/21/25 08:49 Dose: 100 mg Trazodone HCl (Trazodone Hcl 100 Mg Tablet) 100 mg PO BEDTIME [facility] Last Admin: 08/20/25 22:14 Dose: 100 mg Allergies Allergies Allergy/AdvReac Type Severity Reaction Status Date / Time lisinopril Allergy Abdominal Verified 08/09/25 15:20 Pain Assessment & Plan Assessment & Plan (1) Depressive disorder: Status: Acute Code(s): F32.A - Depression, unspecified (2) Alcohol use disorder: Status: Acute Code(s): F10.90 - Alcohol use, unspecified, uncomplicated (3) Cocaine use disorder in remission: Status: Acute Code(s): F14.91 - Cocaine use, unspecified, in remission (4) HTN (hypertension): Status: Acute Code(s): I10 - Essential (primary) hypertension Plan Mr. Deng is a 50 yo black M with h/o anxiety, insomnia, alcohol use d/o, cocaine use d/o in remission, and HTN who presented to [facility] to requesting to speak w/ Crisis after having an anxiety attack. He reportedly endorsed SI at the [facility] ED and HI towards his family in general after being kicked out and having no place to go. BAL on arrival to the ED was 243. Pt was transferred to [facility] for safety and stabilization after undergoing medical clearance. Plan: Admitted to [facility] for safety and stabilization 15 min safety checks Continue current home meds psych meds include fluoxetine 40 mg- has helped with anxiety overall, prazosin 2 mg-helps w/ insomnia, trazodone 100 mg qhs- helps with insomnia but a/w vivid dreams Pt is agreeable w/ plan to trial risperidone off-label for anxiety/impulsivity/anger. Will start with .5 mg tonight and add 0.5 mg bid prn CIWA + prn lorazepam for sx of ETOH w/d 08/10: Med correction - pt was started on fluoxetine 20 mg since he hadn't been taking fluoxetine consistently. He had been taking olanzapine 5 mg qhs at home and dose was decreased to 2.5 mg to x titrate to risperidone (0.5 mg last night). He has received 2 mg lorazeapam per CIWA today, currently denies sx of ETOH w/d. Received clonidine .1 mg for HTN today in addition to losartan 50 mg bid. Still hypertensive but improving. Mood has improved denies SI/violent ideation. -Communicated w/ hospitalist re: tx of HTN. She was in the process of meeting w/ pt and will adjust meds as needed. -Pt agreeable w/ plan to d/c olanzapine and increase risperidone to 1 mg starting tonight for off-label tx of mood lability/anxiety. 08/11: Mood has improved overall. Denies sx of w/d. Last received lorazepam yesterday. Will continue current psychotropic med regimen. Hospitalist added amlodipine 2.5 mg at hs for HTN yesterday. Received one time dose of 5 mg today due to ongoing HTN. Will receive 7.5 mg tomorrow. 08/12: Pt has not scored >4 on CIWA. Will d/c CIWA and prn lorazepam for ETOH w/d. HTN improving w/ amlodipine, increased this am to 7.5 mg. Pt is anxious about d/c planning and possibility that he'll have to go to a [facility]. Denies active SI/violent ideation, AHVH. -Pt agreeable w/ plan to increase risperidone to 2 mg qhs to target anxiety, agitation, anger- improved overall. 08/13:Active on unit. social with peers. attending groups. Patient reports feeling a little anxious because I'm hoping to get a bed at the [facility] ; denies SI/HI/VH/AH. He rpeorts sleeping well last night. Continue tx plan. 08/14: continue tx plan. 08/15/25:Patient reports sleep is improving, same with appetite. Reports he has a good news today as his parents able to sell his truck and gets some money. Reported that mood still kind of up and down, anxious and depressed 5/10 which is improving. Patient shared that this is a very terrible year for him and he has been going through a lot. Be sectioned a couple of them for the safety concerns. Patient said that he is learning how to leave the past behind so that he can moving forward for the future. He hopes that he can get into the program somewhere in this area. Denies safety concerns, or hallucinations. We discussed with patient regarding Prozac which will be increased up to 40 mg to target anxiety and depression/PTSD symptoms. Also due to the mood unsteady-nursing reported the patient having couple outburst-mild over the weekends regarding food was sent wrong up here for him. Appeared to be anxious, depressed, with potential impulsive. Therefore we will increase the risperidone up to 3 total mg a day in divided dose. Risperidone 1mg in the AM and 2 mg at HS Prozac increased from 20 mg up to 40 mg start tomorrow depression/anxiety. Blood pressure appeared to be under control medications. 08/16: Mood has improved. Future oriented. Tolerated med changes made yesterday. Agreeable w/ plan to continue current med regimen. Referred to [facility]. 08/17: Active on unit. social with peers. attending groups. future oriented. Patient reports doing well today; focused on going to substance abuse program. Patients stated, I'm really hoping I can get into the [facility] after here . He states he has been coloring for coping today. denies SI/HI/VH/AH. Continue tx plan. 08/18: Continue current regimen and plans. 08/19/25: Patient got phone interview wit [facility] at 1100 which patient was accepted. Will be discharged on Friday when bed is available. Patient does not show if he is happy as he says he does not want to put too much hope in- only when he is for sure until he lives as the past taught him that way so just in case thing does not go right direction, he does not feel too disappointed. Denies SI/SIB/HI/AVH. Mood is improving and know when to ask for PRN when he is anxious or irritable. Patient was observed irritable x1 toward one of the very intrusive and psychotic patient but directable. He is able to walk away. Complaint with meds, no side effects. Report Risperidone is helpful with his impulsive mood. 08/20/25: Patient is visible, attended groups, compliant with meds. No side effects and slept for 6 hours but report he always up at 0400. Request to have Trazodone increased to see if he can sleep better. Patient reports that he was triggered by a male peer a couple of times yesterday. Rommate moved to new room. Denies SI/SIB/HI/AVH. Increase trazodone up to 100mg at HS. 08/21/25: Patient was triggered by peers, unit acuity which affects him and other peers. He took PRN and was in room in the afternoon yesterday. Patient report future focus and moving on to a new chapter of his life as he is leaving/discharging to [facility] tomorrow. No SI/SIB/HI/AVH. Slept for 5 hours last night but also napped early of the day. No med changes. Patient educated on: diagnosis, medication risk/benefits, substance abuse and therapeutic strategies Reason for continued inpatient stay Substantial Risk for: med/psych decompensation Time Spent With Patient Time: Total time managing care of this patient today ____ minutes.
[2025-08-21 19:24] VITALS: BP 147/107
[2025-08-21] MEDS: Hydrocortisone 1 % Cream 28.35 GM TUBE 1 APPL TOPICAL (19:24)
[2025-08-21 19:35] VITALS: BP 147/101; PULSE 88; RESP 16; TEMP 36.6; O2SAT 100
[2025-08-21 22:46] VITALS: BP 119/76
[2025-08-21 22:47] VITALS: BP 119/76
[2025-08-22 04:17] VITALS: BP 117/83
[2025-08-22 08:00] VITALS: BP 109/75; PULSE 82; RESP 16; TEMP 36.1; O2SAT 100
[2025-08-22] MEDS: Hydrocortisone 1 % Cream 28.35 GM TUBE 1 APPL TOPICAL (09:00)
--- NOTE | 2025-08-22 09:27 | PM.PSYDC ---
DS: Providers Provider Date of admission: 08/09/25 14:46 Date of discharge: 08/22/25 Primary care physician: Unknown Physician Attending physician on admission: Olivia Yu Consults: 08/09/25 16:29 Addiction Medicine Provider Routine Consulting Provider: Addiction Covering Reason for consultation: Positive AUDIT-C Attending physician on discharge: Olivia Yu DS: Diagnosis Discharge Diagnosis (1) Depressive disorder: Status: Acute (2) Alcohol use disorder: Status: Acute (3) Cocaine use disorder in remission: Status: Acute (4) HTN (hypertension): Status: Acute DS: Medications Discharge Medications Home Medications: Home Medications ?Medication ?Instructions ?Recorded ?Confirmed naltrexone microspheres 380 mg 380 mg IM Q4W 08/09/25 08/09/25 intramuscular suspension,extended release (Vivitrol) Previous Rx's ?Medication ?Instructions ?Recorded amlodipine 2.5 mg tablet 7.5 mg PO DAILY 30 days #90 tabs 08/21/25 clonidine HCl 0.1 mg tablet 0.1 mg PO TID PRN Anxiety. 30 08/21/25 days #90 tabs allopurinol 100 mg tablet 100 mg PO DAILY Gout 30 days #30 08/22/25 tabs fluoxetine 40 mg capsule 40 mg PO DAILY depression/anxiety 08/22/25 30 days #30 caps hydroxyzine HCl 25 mg tablet 25 mg PO TID PRN mild anxiety 30 08/22/25 days #90 tabs losartan 50 mg tablet 50 mg PO BID blood pressure 30 08/22/25 days #60 tabs melatonin 3 mg tablet 6 mg (2 x 3 mg) PO BEDTIME PRN 08/22/25 insomnia 30 days #60 tabs prazosin 2 mg capsule 2 mg PO BEDTIME 30 days #30 caps 08/22/25 risperidone 1 mg tablet See Rx Instructions .Route 08/22/25 .COMPLEX #90 tabs trazodone 100 mg tablet 100 mg PO BEDTIME insomnia 30 days 08/22/25 #30 tabs Mental Status Exam Mental Status Exam Narrative: Appearance: Casual. Grooming/hygiene and eye contact wnl Attitude: Cooperative Speech: Fluent and wnl in regard to volume, tone, prosody Motor activity: Calm. Steady gait. No dyskinesias Mood: Anxious about moving on to next step but much better overall Affect: appropriate, generally bright Thought process: Goal directed, no evidence of formal thought disorder Thought content: Denies SI. Denies violent ideation. future oriented Perception: Denies AH/VH and does not appear to respond to internal stimuli Alert/oriented in all spheres Cognition grossly intact Insight: intact Judgment: intact DS: Summary Hospital Course Hospital Course: Mr. Deng is a 50 yo black M with h/o anxiety, insomnia, alcohol use d/o, cocaine use d/o in remission, and HTN who presented to [facility] requesting to speak w/ Crisis after having an anxiety attack. He reportedly endorsed SI at the [facility] ED and HI towards his family in general after being kicked out and having no place to go. BAL on arrival to the ED was 243. Pt was transferred to [facility] for safety and stabilization after undergoing medical clearance. Initial Tx Plan: Admitted to [facility] for safety and stabilization 15 min safety checks Continue current home meds psych meds include fluoxetine 20 mg- has helped with anxiety overall (started on lower dose since he had been off it prior to admission), prazosin 2 mg-helps w/ insomnia, trazodone 100 mg qhs- helps with insomnia but a/w vivid dreams Pt is agreeable w/ plan to trial risperidone off-label for anxiety/impulsivity/anger. Will start with .5 mg tonight and add 0.5 mg bid prn. Tapered home dose of olanzapine to 2.5 mg. CIWA + prn lorazepam for sx of ETOH w/d 08/10: Pt received 2 mg lorazepam per CIWA today, currently denies sx of ETOH w/d. Received clonidine .1 mg for HTN in addition to losartan 50 mg bid. Still hypertensive but improving. Mood has improved denies SI/violent ideation. Pt agreeable w/ plan to d/c olanzapine and increase risperidone to 1 mg starting tonight for off-label tx of mood lability/anxiety. 08/11: Mood has improved overall. Denies sx of w/d. Last received lorazepam yesterday. Will continue current psychotropic med regimen. Hospitalist added amlodipine 2.5 mg at hs for HTN yesterday. Received one time dose of 5 mg today due to ongoing HTN. Will receive 7.5 mg tomorrow. 08/12: CIWA and prn lorazepam d/c'd. HTN improving w/ amlodipine, increased this am to 7.5 mg. Pt is anxious about d/c planning and possibility that [facility]'ll have to [facility] to a [facility]. Denies active SI/violent ideation, AHVH. -Pt agreeable w/ plan to increase risperidone to 2 mg qhs to target anxiety, agitation, anger- improved overall. 08/13:Active on unit. social with peers. attending groups. Patient reports feeling a little anxious because I'm hoping to get a bed at the [facility] ; denies SI/HI/VH/AH. Slept well. 08/15/25: Prozac increased to 40 mg to optimize tx of anxiety/depression. Pt had a couple mild verbal outbursts over the weekend re: wrong food being sent to him. Endorsed longstanding issues w/ anger/impulsivity. Agreed to titrate risperidone to 1 mg qam and 2 mg qhs. 08/16: Mood has improved. Future oriented. Tolerated med changes made yesterday.Referred to [facility]. 08/17: Active on unit. social with peers. attending groups. future oriented. Patient reports doing well today; focused on going to substance abuse program. 08/19: Accepted to [facility]. 08/20/25: Increase trazodone up to 100mg at HS to optimize tx of insomnia Pt had a few mild verbal outbursts during his admission when triggered by peers on the unit or having the wrong food being deilvered. He did not engage in any unsafe behaviors. He felt that athe risperidone helped overall with his anger/impulse control. On the day of discharge, pt reported feeling safe with his plan to go to the [facility]. He denied SI/violent ideation, AHVH. Status at Discharge Functional status at discharge: independent ambulation Overall status at discharge: patient is back to baseline Time Spent with Patient Time attestation: Total time managing care of this patient today ____ minutes. Time spent: Less than 30 minutes Discharge Plan Discharge Anticipated Discharge Date/Time: 08/22/25 12:00 Patient Disposition: Xfer Other Discharge Diagnosis: MDD, HTN, Alcohol and cocaine use disorders. Referrals: [facility] (therapy and psychiatric services) [Other] - 1 Week Referral Note: walk in hours are Friday-Friday 8am-8pm as well as weekend hours 9am-5pm crisis services available 17/03 [facility] (psychiatric and therapy services) [Other] - 1 Week Referral Note: walk in hours are Friday-Friday 8am-8pm as well as weekend hours 9am-5pm Dede Dawson NP [Nurse Practitioner, Internal Medicine] - 1 Week Referral Note: 08-16-25 Your primary care provider has been notified of your discharge and will be in contact with the date and time of your follow up appt Discharge Medications: New amlodipine 2.5 mg Tablet 7.5 mg PO DAILY 30 Days Qty: 90 0RF Protocol: Hold for SBP< HOLD for SBP < : 90 clonidine HCl 0.1 mg Tablet 0.1 mg PO TID PRN (Reason: Anxiety. ) 30 Days Qty: 90 0RF Protocol: Hold for SBP< HOLD for SBP < : 90 hydroxyzine HCl 25 mg Tablet 25 mg PO TID PRN (Reason: mild anxiety) 30 Days Qty: 90 0RF risperidone 1 mg Tablet See Rx Instructions .ROUTE .COMPLEX Qty: 90 0RF Rx Instructions: Take 1 mg- 1 tablet orally daily in the morning. Take 2 mg- 2 tablets at bedtime for mood/impulsive behavior. Continued Vivitrol 380 mg suspension,extended rel recon 380 mg IM Q4W losartan 50 mg tablet 50 mg PO BID 30 Days Qty: 60 0RF fluoxetine 40 mg capsule 40 mg PO DAILY 30 Days Qty: 30 0RF allopurinol 100 mg tablet 100 mg PO DAILY 30 Days Qty: 30 0RF trazodone 100 mg tablet 100 mg PO BEDTIME 30 Days Qty: 30 0RF prazosin 2 mg capsule 2 mg PO BEDTIME 30 Days Qty: 30 0RF Changed melatonin 3 mg tablet 6 mg PO BEDTIME PRN (Reason: insomnia) 30 Days Qty: 60 0RF Discontinued olanzapine 5 mg tablet 5 mg PO BEDTIME thiamine HCl (vitamin B1) 100 mg tablet 100 mg PO DAILY Discharge Orders: Discharge Order (Routine); Ordered 08/22/25 Ordered By: Vaishali Srivastava Diet: Regular diet Activity on Discharge: No Restrictions Stand Alone Forms: Patient Portal Discharge page, Community Support Print Language: [place] Care Plan Goals: Maintain mood and safe behaviors Take medications as prescribed Continue to pursue sobriety Practice coping skills Continue with outpatient providers and reach out to them as needed Health Concerns: Mood stability and behaviors Sobriety Plan of Treatment: Follow up with your PCP, psychiatric provider and other outpatient providers regarding above concerns Take medications as prescribed Assessment: Assessment: Risk assessment at time of discharge: Patient was interviewed prior to discharge and found to be fully oriented and without any SI or HI. Patient has improved insight and judgment and wants to continue treatment. Patient is not in imminent risk of harm to self or others and has a safety plan that includes presenting to the closest ER or calling 911 if feeling unsafe. Patient has been observed closely by nursing and unit staff throughout admission; patient has not engaged in any behaviors that suggest dangerousness to self or others and has demonstrated appropriate behaviors and impulse control Discharge Date/Time: 08/22/25 11:50
--- NOTE | 2025-08-22 12:10 | PC.NURSE ---
Patient easily engaged. Reports feeling ready for discharge. Denies depression or sadness, denies anxiety, denies SI/HI plan or intent. Denies perceptual disturbances, no overt psychosis or expressed delusions. Denies A/V hallucinations. No reported racing thoughts or confusion. No confusion or feeling foggy. Discharge paperwork reviewed with patient, reports understanding. Medications reviewed with patient reports understanding. Patient discharging to [facility]. No follow up appointments scheduled, PCP to contact patient for appointment. Crisis numbers provided to patient.
== END 2025-08-22 11:50 | disposition other institution (70) | DRG 754 ==
PROVIDERS: Admitting Provider Psychiatry & Neurology Psychiatry; Visit Provider Psychiatry & Neurology Psychiatry
DX: F32.9 Major depressive disorder, single episode, unspecified (principal); F10.90 Alcohol use, unspecified, uncomplicated; Y90.8 Blood alcohol level of 240 mg/100 ml or more; F14.91 Cocaine use, unspecified, in remission; F41.9 Anxiety disorder, unspecified; R45.1 Restlessness and agitation; R45.4 Irritability and anger; G47.00 Insomnia, unspecified; I10 Essential (primary) hypertension; M25.562 Pain in left knee; Z79.899 Other long term (current) drug therapy; Z62.810 Personal history of physical and sexual abuse in childhood; Z59.02 Unsheltered homelessness; Z63.79 Other stressful life events affecting family and household
CPT/HCPCS: 36415; 80061; 83036

== ENCOUNTER → 2025-08-09 14:46 | Outpatient (BNV) | payer MEDICAID, SELFPAY | PROVIDERS: Admitting Provider Psychiatry & Neurology Psychiatry; Visit Provider Nurse Practitioner Family | DX: I10 Essential (primary) hypertension (principal) | CPT/HCPCS: 99221 ==

== ENCOUNTER → 2025-08-09 14:46 | Outpatient (BNV) | payer OTHER, SELFPAY | PROVIDERS: Admitting Provider Psychiatry & Neurology Psychiatry; Visit Provider Psychiatry & Neurology Psychiatry | DX: F32.2 Major depressive disorder, single episode, severe without psychotic features (principal); F10.90 Alcohol use, unspecified, uncomplicated; F14.91 Cocaine use, unspecified, in remission; I10 Essential (primary) hypertension | CPT/HCPCS: 99231; 99232 ==